=== PATIENT | male | born 1990 | race Caucasian/White ===

== ENCOUNTER → 2016-07-25 | Outpatient (CLI) | payer OTHER ==
[2016-07-25 12:24] LABS: Non-African American GFR(MDRD) >60 (>60 ml/min/1.73 sqM)
== END | disposition home or self-care (01) ==
LOC: LABMAIN 11:36
PROVIDERS: ATTEND Transplant Surgery
DX: Z00.5 Encounter for examination of potential donor of organ and tissue (principal); Z52.6 Liver donor
CPT/HCPCS: 36415; 82565

== ENCOUNTER 2018-01-12 12:58 | Emergency (ER) | payer OTHER ==
[2018-01-12 13:10] VITALS: BP 124/88; PULSE 105; RESP 18; TEMP 98.5
[2018-01-12] MEDS ORDERED: IBUPROFEN 800 MG TAB PO STA (13:18)
--- NOTE | 2018-01-12 13:33 | ED ---
General Adult HPI - General Chief complaint: Chest Pain Stated complaint: rt rib injury Time Seen by Provider: 01/12/18 13:10 Source: patient, RN notes reviewed Mode of arrival: ambulatory Limitations: no limitations - History of Present Illness Initial comments: 28-year-old male presents to the emergency department for a chief complaint of right rib pain 3 weeks. Patient states that 3 weeks ago he was tubing without a lifejacket on when he fell off onto his right side. Patient states that pain has been consistent since that time. Patient states that the pain in his ribs is causing him to decrease his workouts from 4 hours to 2 hours. Patient states that working out makes the pain worse. Patient denies shortness of breath or chest pain associated with this. Patient denies any abdominal pain. Patient has no other complaints at this time including shortness of breath, chest pain, nausea or vomiting, headache, or visual changes. - Related Data Home Medications Medication Instructions Recorded Confirmed Phentermine HCl [Adipex-P] 37.5 mg PO QAM 12/01/15 03/29/16 Ibuprofen [Motrin] 600 mg PO BID PRN 03/29/16 03/29/16 Previous Rx's Medication Instructions Recorded Omeprazole 40 mg PO DAILY #30 capsule. 03/30/16 Ibuprofen [Motrin] 800 mg PO Q6H PRN #20 tab 01/12/18 Allergies Allergy/AdvReac Type Severity Reaction Status Date / Time No Known Allergies Allergy Verified 01/12/18 13:10 Review of Systems ROS Statement: Those systems with pertinent positive or pertinent negative responses have been documented in the HPI. ROS Other: All systems not noted in ROS Statement are negative. Past Medical History Past Medical History: GERD/Reflux Additional Past Medical History / Comment(s): STATES HE HAS SEIZURE LIKE ACTIVITY (SHAKY, DIFFICULTY STANDING); LAST EPISODES WAS NOVEMBER 2015. OCCASIONAL BLOOD IN STOOL, SOMETIMES IT FEELS LIKE FOOD GETS STUCK IN HIS THROAT. DISLOCATED RIGHT SHOULDER (CHILDHOOD INJURY). History of Any Multi-Drug Resistant Organisms: None Reported Past Surgical History: Orthopedic Surgery Additional Past Surgical History / Comment(s): RIGHT KNEE ARTHROSCOPY Past Anesthesia/Blood Transfusion Reactions: No Reported Reaction Past Psychological History: No Psychological Hx Reported Smoking Status: Current every day smoker Past Alcohol Use History: Occasional Past Drug Use History: Marijuana - Past Family History Father Family Medical History: Cancer, Liver Disease Additional Family Medical History / Comment(s): HEPATITIS C, CIRRHOSIS, LIVER CANCER. General Exam Limitations: no limitations General appearance: alert, in no apparent distress (sitting on chair pleasant and interactive) Head exam: Present: atraumatic, normocephalic, normal inspection Eye exam: Present: normal appearance. Absent: scleral icterus, conjunctival injection Neck exam: Present: normal inspection, full ROM. Absent: tenderness, meningismus, lymphadenopathy Respiratory exam: Present: normal lung sounds bilaterally, other (Right anterior lower rib tenderness around rib 9). Absent: respiratory distress, wheezes, rales, rhonchi, stridor Cardiovascular Exam: Present: regular rate, normal rhythm, normal heart sounds. Absent: systolic murmur, diastolic murmur, rubs, gallop, clicks GI/Abdominal exam: Present: soft, normal bowel sounds. Absent: distended, tenderness, guarding, rebound, rigid Course Vital Signs 01/12/18 01/12/18 13:07 13:39 Temperature 98.5 F Pulse Rate 105 H Respiratory 18 18 Rate Blood Pressure 124/88 O2 Sat by Pulse 98 Oximetry Medical Decision Making - Medical Decision Making 28-year-old male presents to the emergency department for a chief complaint of right rib pain 3 weeks. Patient fell off a tube without a lifejacket about 3 weeks ago. Patient states he has had pain in his ribs since that time. Patient denies any shortness of breath or chest pain. Patient denies any abdominal pain. Vitals within normal limits but mildly tachycardic at 105. On exam patient has right lower anterior rib tenderness. No abdominal tenderness. X-ray of the right ribs shows no acute displaced rib fracture. No pneumothorax. Patient likely has a contusion of the right ribs. pt educated to rest and take a break from working out. Patient will be treated with Motrin 800. He requested 800 mg instead of 600 mg and he was educated to take this with food. He will follow up with primary care in 1-2 days. He was educated on "pillow splinting". He was educated on taking deep breaths to prevent the possibility of pneumonia. He will return to the emergency department if he has any worsening symptoms. Disposition Clinical Impression: Contusion of rib on right side Disposition: HOME SELF-CARE Condition: Good Instructions: Rib Contusion (ED) Additional Instructions: Please take Motrin as needed with food. Please rest and ice the area. You may use a pillow to press against your ribs for comfort if this helps. If you have any worsening symptoms, increased pain, or shortness of breath return to the emergency department. Otherwise, follow up with primary care in 1-2 days. Prescriptions: Ibuprofen [Motrin] 800 mg PO Q6H PRN #20 tab PRN Reason: Pain Is patient prescribed a controlled substance at d/c from ED?: No Referrals: Kirk Vernon MD [Primary Care Provider] - 1-2 days Time of Disposition: 14:04
--- NOTE | 2018-01-12 13:53 | XR ---
EXAMINATION TYPE: XR ribs RT w pa chest xray DATE OF EXAM: 01/12/2018 COMPARISON: 10/17/2010 TECHNIQUE: PA and lateral views submitted. HISTORY: Pain FINDINGS: The lungs are clear and there is no pneumothorax, pleural effusion, or focal pneumonia. X line the rib cage is intact. IMPRESSION: 1. No acute displaced rib fracture.
== END 2018-01-12 14:17 | disposition home or self-care (01) ==
LOC: EC 12:58
DX: S20.211A Contusion of right front wall of thorax, initial encounter (principal); F17.200 Nicotine dependence, unspecified, uncomplicated; Z79.899 Other long term (current) drug therapy; W19.XXXA Unspecified fall, initial encounter; Y93.16 Activity, rowing, canoeing, kayaking, rafting and tubing
CPT/HCPCS: 99283

== ENCOUNTER 2018-01-19 11:39 | Emergency (ER) | payer OTHER ==
[2018-01-19] MEDS ORDERED: KETOROLAC 30 MG/ML 1 ML VIAL IVP STA (12:32)
[2018-01-19] MEDS ORDERED: SODIUM CHLORIDE 0.9% 500 ML IV STA (12:32)
[2018-01-19] MEDS ORDERED: HYDROmorphone 1 MG/ML 1 ML SYRINGE IVP STA (12:32)
[2018-01-19] MEDS ORDERED: ONDANSETRON 4 MG/2 ML VIAL IVP STA (12:32)
--- NOTE | 2018-01-19 12:35 | ED ---
General Adult HPI - General Chief complaint: Abdominal Pain Stated complaint: Right Side Pain Time Seen by Provider: 01/19/18 12:00 Source: patient, RN notes reviewed Mode of arrival: ambulatory Limitations: no limitations - History of Present Illness Initial comments: This is a 28-year-old male who presents emergency room complaining of right- sided flank pain which radiates to his back and down into his groin. Patient states it started at 10:30 when he woke up. Patient also is very nauseated and has been vomiting. Patient states he's never sprints is 4. Patient's had no abdominal surgeries. Patient states pressing on his stomach does not seem to hurt him at all. Patient denies any difficulty breathing or shortness of breath. Patient denies any recent fever chills or cough. Patient denies any chest pain. Patient denies any headache patient denies any numbness weakness. - Related Data Home Medications Medication Instructions Recorded Confirmed Atomoxetine HCl [Strattera] 40 mg PO DAILY 01/19/18 01/19/18 Loratadine [Claritin] 10 mg PO DAILY 01/19/18 01/19/18 Previous Rx's Medication Instructions Recorded Hydrocodone/Acetaminophen [[place] 1 each PO Q4HR PRN #14 tab 01/19/18 5-325] Ketorolac [Toradol] 10 mg PO Q6HR #15 tab 01/19/18 Tamsulosin HCl [Flomax] 0.4 mg PO DAILY #7 capsule 01/19/18 Allergies Allergy/AdvReac Type Severity Reaction Status Date / Time No Known Allergies Allergy Verified 01/19/18 13:10 Review of Systems ROS Statement: Those systems with pertinent positive or pertinent negative responses have been documented in the HPI. ROS Other: All systems not noted in ROS Statement are negative. Past Medical History Past Medical History: GERD/Reflux, Seizure Disorder Additional Past Medical History / Comment(s): DISLOCATED RIGHT SHOULDER ( CHILDHOOD INJURY). History of Any Multi-Drug Resistant Organisms: None Reported Past Surgical History: Orthopedic Surgery Additional Past Surgical History / Comment(s): RIGHT KNEE ARTHROSCOPY Past Anesthesia/Blood Transfusion Reactions: No Reported Reaction Past Psychological History: No Psychological Hx Reported Smoking Status: Current every day smoker Past Alcohol Use History: Occasional Past Drug Use History: Marijuana - Past Family History Father Family Medical History: Cancer, Liver Disease Additional Family Medical History / Comment(s): HEPATITIS C, CIRRHOSIS, LIVER CANCER. General Exam - General Exam Comments Initial Comments: GENERAL: Patient is well-developed and well-nourished. Patient is nontoxic and well- hydrated and is in moderate distress. ENT: Neck is soft and supple. No significant lymphadenopathy is noted. Oropharynx is clear. Moist mucous membranes. EYES: The sclera were anicteric and conjunctiva were pink and moist. Extraocular movements were intact and pupils were equal round and reactive to light. Eyelids were unremarkable. PULMONARY: Unlabored respirations. Good breath sounds bilaterally. No audible rales rhonchi or wheezing was noted. CARDIOVASCULAR: There is a regular rate and rhythm without any murmurs gallops or rubs. ABDOMEN: Soft and nontender with normal bowel sounds. SKIN: Skin is clear with no lesions or rashes and otherwise unremarkable. NEUROLOGIC: Patient is alert and oriented x3. Cranial nerves II through XII are grossly intact. Motor and sensory are also intact. Normal speech, volume and content. Symmetrical smile. MUSCULOSKELETAL: Normal extremities with adequate strength and full range of motion. LYMPHATICS: No significant lymphadenopathy is noted PSYCHIATRIC: Normal psychiatric evaluation. Limitations: no limitations Course Vital Signs 01/19/18 01/19/18 12:00 14:06 Temperature 98.3 F 99.1 F Pulse Rate 124 H 60 Respiratory 18 14 Rate Blood Pressure 131/83 132/61 O2 Sat by Pulse 97 96 Oximetry Medical Decision Making - Medical Decision Making Patient got Toradol and Dilaudid and department along with Zofran. Patient's considerably better. Patient's CAT scan shows a kidney stone 4 mm on the right distal ureter causing some mild hydroureter and mild hydronephrosis. - Lab Data Result diagrams: 01/19/18 12:41 01/19/18 12:41 Lab Results 01/19/18 01/19/18 01/19/18 Range/Units 12:41 12:41 14:20 WBC 7.4 (3.8-10.6) k/uL RBC 5.25 (4.30-5.90) m/uL Hgb 17.7 H (13.0-17.5) gm/dL Hct 51.2 (39.0-53.0) % MCV 97.6 (80.0-100.0) fL MCH 33.7 (25.0-35.0) pg MCHC 34.6 (31.0-37.0) g/dL RDW 13.7 (11.5-15.5) % Plt Count 225 (150-450) k/uL Neutrophils % 70 % Lymphocytes % 20 % Monocytes % 5 % Eosinophils % 3 % Basophils % 0 % Neutrophils # 5.1 (1.3-7.7) k/uL Lymphocytes # 1.5 (1.0-4.8) k/uL Monocytes # 0.4 (0-1.0) k/uL Eosinophils # 0.2 (0-0.7) k/uL Basophils # 0.0 (0-0.2) k/uL Sodium 140 (137-145) mmol/L Potassium 4.5 (3.5-5.1) mmol/L Chloride 108 H (98-107) mmol/L Carbon Dioxide 22 (22-30) mmol/L Anion Gap 10 mmol/L BUN 13 (9-20) mg/dL Creatinine 1.14 (0.66-1.25) mg/dL Est GFR (CKD-EPI)AfAm >90 (>60 ml/min/1.73 sqM) Est GFR (CKD-EPI)NonAf 86 (>60 ml/min/1.73 sqM) Glucose 89 (74-99) mg/dL Calcium 9.6 (8.4-10.2) mg/dL Total Bilirubin 1.2 (0.2-1.3) mg/dL AST 23 (17-59) U/L ALT 30 (21-72) U/L Alkaline Phosphatase 53 (38-126) U/L Total Protein 6.6 (6.3-8.2) g/dL Albumin 4.6 (3.5-5.0) g/dL Amylase 73 (30-110) U/L Lipase 116 (23-300) U/L Urine Color Dark Brown Urine Appearance Cloudy (Clear) Urine RBC >182 H (0-5) /hpf Urine WBC 74 H (0-5) /hpf Urine Mucus Many H (None) /hpf Disposition Clinical Impression: Kidney stone Disposition: HOME SELF-CARE Condition: Good Instructions: Kidney Stones (ED), How to Strain Your Urine (ED) Prescriptions: Hydrocodone/Acetaminophen [[place] 5-325] 1 each PO Q4HR PRN #14 tab PRN Reason: Pain Ketorolac [Toradol] 10 mg PO Q6HR #15 tab Tamsulosin HCl [Flomax] 0.4 mg PO DAILY #7 capsule Is patient prescribed a controlled substance at d/c from ED?: Yes When asked, does pt state using other controlled substances?: No If prescribed controlled substance>3 days was MAPS reviewed?: Prescribed <3 Days If opioid is for acute pain is fill amount 7 days or less?: Yes If Rx opioid, was Start Talking consent form obtained?: Yes Referrals: Kirk Vernon MD [Primary Care Provider] - 1-2 days Time of Disposition: 14:51
[2018-01-19 13:03] LABS: Basophils % (A) 0 %; Eosinophils # (A) 0.2 k/uL (0-0.7); Eosinophils % (A) 3 %; HCT 51.2 % (39.0-53.0); HGB 17.7 gm/dL (13.0-17.5); Lymphocytes # (A) 1.5 k/uL (1.0-4.8); Lymphocytes % (A) 20 %; MCH 33.7 pg (25.0-35.0); MCHC 34.6 g/dL (31.0-37.0); MCV 97.6 fL (80.0-100.0); Mean Platelet Volume 6.8; Monocytes # (A) 0.4 k/uL (0-1.0); Monocytes % (A) 5 %; Neutrophils # (A) 5.1 k/uL (1.3-7.7); Neutrophils % (A) 70 %; Platelet Count 225 k/uL (150-450); RBC 5.25 m/uL (4.30-5.90); RDW 13.7 % (11.5-15.5); WBC 7.4 k/uL (3.8-10.6)
[2018-01-19 13:24] LABS: ALT 30 U/L (21-72); AST 23 U/L (17-59); Albumin 4.6 g/dL (3.5-5.0); Alkaline Phosphatase 53 U/L (38-126); Amylase 73 U/L (30-110); Anion Gap 10 mmol/L; Blood Urea Nitrogen 13 mg/dL (9-20); Calcium 9.6 mg/dL (8.4-10.2); Carbon Dioxide 22 mmol/L (22-30); Chloride 108 mmol/L (98-107); Glucose 89 mg/dL (74-99); Lipase 116 U/L (23-300); Potassium 4.5 mmol/L (3.5-5.1); Sodium 140 mmol/L (137-145); Total Bilirubin 1.2 mg/dL (0.2-1.3); Total Protein 6.6 g/dL (6.3-8.2)
--- NOTE | 2018-01-19 13:26 | XR ---
EXAMINATION TYPE: XR KUB DATE OF EXAM: 01/19/2018 CLINICAL DATA: 28 year-old male with abdominal pain, PHH COMPARISON: None FINDINGS: Lung bases are clear. No evidence for free intraperitoneal air. No dilated small bowel or air-fluid levels. Scattered air is seen throughout the colon extending dist ally into the rectum. Minimal scattered stool. No suspicious calcifications identified. IMPRESSION: No evidence of bowel obstruction or free intraperitoneal air.
[2018-01-19] MEDS ORDERED: HYDROmorphone 0.5 MG/0.5 ML SYRINGE IVP STA (14:06)
[2018-01-19 14:09] VITALS: TEMP 99.1
--- NOTE | 2018-01-19 14:22 | CT ---
EXAMINATION TYPE: CT abdomen pelvis wo con DATE OF EXAM: 01/19/2018 COMPARISON: None HISTORY: 28-year-old male Rt side abdominal pain CT DLP: 957.5 mGycm. Automated exposure control for dose reduction was used. TECHNIQUE: Contiguous axial scanning of the abdomen and pelvis without IV contrast. Coronal and sagit yael reconstructions performed. FINDINGS: Heart normal size without pericardial effusion. Lung bases clear without pleural effusion. The liver is borderline to mildly enlarged at 18.9 cm. Otherwise, noncontrast appearance of the liver , gallbladder, adrenal glands, and pancreas show no gross abnormal mobility. Spleen is borderline enlarged at 13.8 cm. Right kidney shows mild hydronephrosis with a small 4 mm calculus at the distal third right ureter. T here is some mildly increased density in the region of the renal pyramids that could represent concen trated urine results. No dilated small bowel, free fluid, or free air. Normal appendix. No mesenteric or retroperitoneal lymphadenopathy. Scattered mild stool. No significant stool burden. Bladder collapsed. No abnormal fluid collection in the pelvis or pelvic lymphadenopathy. Bones: There is a left L5 hemisacralization. No osseous destructive process. IMPRESSION: 1. A small 4 mm calculus at the distal third right ureter with mild obstructive uropathy. 2. Borderline hepatosplenomegaly (liver 18.9 cm and spleen 13.8 cm).
[2018-01-19 14:38] LABS: Mucus,Urine Many /hpf; RBC,Urine >182 /hpf (0-5); WBC,Urine 74 /hpf (0-5)
[2018-01-19 14:41] LABS: Appearance,Urine Cloudy (Clear); Color,Urine Dark Brown
[2018-01-19] MEDS ORDERED: ONDANSETRON 4 MG ODT STARTER PACK 2 TAB BTL PO STA (14:55)
[2018-01-19 15:25] VITALS: BP 155/91; PULSE 61; RESP 18
== END 2018-01-19 15:25 | disposition home or self-care (01) ==
LOC: EC 11:39
DX: N13.2 Hydronephrosis with renal and ureteral calculous obstruction (principal); F17.200 Nicotine dependence, unspecified, uncomplicated; Z79.899 Other long term (current) drug therapy
CPT/HCPCS: 36415; 80053; 82150; 83690; 85025; 81001; 74018; 74176; 99284; 96374; 96375 ×2; 96376 ×2; J2405; J1885; J1170 ×2; S0119

== ENCOUNTER 2018-01-26 04:14 | Emergency (ER) | payer OTHER ==
[2018-01-26 04:32] VITALS: BP 154/102; PULSE 90; RESP 18; TEMP 99.1
--- NOTE | 2018-01-26 05:16 | ED ---
General Adult HPI - General Chief complaint: Urogenital Stated complaint: KIDNEY STONE Source: patient Mode of arrival: ambulatory Limitations: no limitations - History of Present Illness Initial comments: Dictation was produced using [employer] dictation software. please excuse any grammatical, word or spelling errors. Chief Complaint: 28-year-old male withpast medical history presents with persistent pain after being diagnosed recently with 4 mm kidney stone History of Present Illness: Patient is a 28-year-old male presents for medication refill. Patient states he is without insurance. He was diagnosed with kidney stone last week and a son abdominal and pelvic CT. Stone was allegedly 4 mm. He hasn't followed up with urology secondary to lack of insurance. Patient states his pain is otherwise been fairly mild. Denies any nausea or vomiting. Denies any dysuria. The ROS documented in this emergency department record has been reviewed and confirmed by me. Those systems with pertinent positive or negative responses have been documented in the HPI. All other systems are other negative and/or noncontributory. - Related Data Home Medications Medication Instructions Recorded Confirmed Atomoxetine HCl [Strattera] 40 mg PO DAILY 01/19/18 01/19/18 Loratadine [Claritin] 10 mg PO DAILY 01/19/18 01/19/18 Previous Rx's Medication Instructions Recorded Hydrocodone/Acetaminophen [[place] 1 each PO Q4HR PRN #14 tab 01/19/18 5-325] Ketorolac [Toradol] 10 mg PO Q6HR #15 tab 01/19/18 Tamsulosin HCl [Flomax] 0.4 mg PO DAILY #7 capsule 01/19/18 HYDROcodone/APAP 5-325MG [[place] 1 tab PO Q6HR PRN 3 Days #12 tab 01/26/18 5-325] Ibuprofen [Motrin] 400 mg PO Q6HR PRN #20 tab 01/26/18 Tamsulosin HCl [Flomax] 0.4 mg PO DAILY #10 capsule 01/26/18 Allergies Allergy/AdvReac Type Severity Reaction Status Date / Time No Known Allergies Allergy Verified 01/26/18 04:32 Review of Systems ROS Statement: Those systems with pertinent positive or pertinent negative responses have been documented in the HPI. ROS Other: All systems not noted in ROS Statement are negative. Past Medical History Past Medical History: GERD/Reflux, Seizure Disorder Additional Past Medical History / Comment(s): DISLOCATED RIGHT SHOULDER ( CHILDHOOD INJURY). kidney stones, History of Any Multi-Drug Resistant Organisms: None Reported Past Surgical History: Orthopedic Surgery Additional Past Surgical History / Comment(s): RIGHT KNEE ARTHROSCOPY Past Anesthesia/Blood Transfusion Reactions: No Reported Reaction Past Psychological History: No Psychological Hx Reported Smoking Status: Current every day smoker Past Alcohol Use History: Occasional Past Drug Use History: Marijuana - Past Family History Father Family Medical History: Cancer, Liver Disease Additional Family Medical History / Comment(s): HEPATITIS C, CIRRHOSIS, LIVER CANCER. General Exam - General Exam Comments Initial Comments: PHYSICAL EXAM: General Impression: Alert and oriented x3, not in acute distress HEENT: Normocephalic atraumatic, extra-ocular movements intact, pupils equal and reactive to light bilaterally, mucous membranes moist. Cardiovascular: Heart regular rate and rhythm, S1&S2 audible, no murmurs, rubs or gallops Chest: Lungs clear to auscultation bilaterally, no rhonchi, no wheeze, no rales Abdomen: Bowel sounds present, abdomen soft, non-tender, non-distended, no organomegaly Musculoskeletal: Pulses present and equal in all extremities, no peripheral edema Motor: Power 5/5 bilaterally, no focal deficits noted Neurological: CN II-XII grossly intact, no focal motor or sensory deficits noted Skin: Intact with no visualized rashes Psych: Normal affect and mood Limitations: no limitations Course Vital Signs 01/26/18 04:29 Temperature 99.1 F Pulse Rate 90 Respiratory 18 Rate Blood Pressure 154/102 O2 Sat by Pulse 98 Oximetry Medical Decision Making - Medical Decision Making ED course: Male presents with medication refill. Patient was diagnosed with 4 mm kidney stone 7 days ago. Patient reports that he still having mild persistent symptoms. Patient given refill on his medications. Vital signs upon arrival are within acceptable limits. Patient denies any constitutional symptoms or urinary symptoms. Patient advised to follow-up with urology upon discharge. Disposition Clinical Impression: Renal colic Disposition: HOME SELF-CARE Condition: Fair Instructions: Renal Colic (ED) Prescriptions: HYDROcodone/APAP 5-325MG [[place] 5-325] 1 tab PO Q6HR PRN 3 Days #12 tab PRN Reason: Severe Pain Ibuprofen [Motrin] 400 mg PO Q6HR PRN #20 tab PRN Reason: Pain Tamsulosin HCl [Flomax] 0.4 mg PO DAILY #10 capsule Is patient prescribed a controlled substance at d/c from ED?: Yes If prescribed controlled substance>3 days was MAPS reviewed?: Prescribed <3 Days Referrals: Kirk Vernon MD [Primary Care Provider] - 1-2 days Time of Disposition: 05:16
[2018-01-26] MEDS ORDERED: IBUPROFEN 800 MG TAB PO STA (05:31)
== END 2018-01-26 05:35 | disposition home or self-care (01) ==
LOC: EC 04:14
DX: N23 Unspecified renal colic (principal); F17.200 Nicotine dependence, unspecified, uncomplicated; Z98.890 Other specified postprocedural states; Z79.899 Other long term (current) drug therapy
CPT/HCPCS: 99283

== ENCOUNTER → 2019-01-09 | Outpatient (CLI) | payer OTHER | END | disposition home or self-care (01) | LOC: CPPFTMAIN 11:09 | PROVIDERS: ATTEND Family Medicine | DX: R06.09 Other forms of dyspnea (principal) | CPT/HCPCS: 94060; 94726; 94729 ==

== ENCOUNTER 2019-04-28 12:55 | Emergency (ER) | payer OTHER ==
--- NOTE | 2019-04-28 13:41 | ED ---
Upper Extremity HPI - General Chief Complaint: Extremity Injury, Upper Stated Complaint: left shoulder injury Time Seen by Provider: 04/28/19 13:09 Source: patient, RN notes reviewed Mode of arrival: ambulatory Limitations: no limitations - History of Present Illness Initial Comments: 29-year-old male presents emergency Department chief complaint of left shoulder pain. 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 He states that he does a several times throughout his shift. He states he gets the point where his pain over his AC joint. He is [id number]. Patient states that pain is unbearable with movement. - Related Data Home Medications Medication Instructions Recorded Confirmed Atomoxetine HCl [Strattera] 40 mg PO DAILY 01/19/18 01/19/18 Loratadine [Claritin] 10 mg PO DAILY 01/19/18 01/19/18 Previous Rx's Medication Instructions Recorded Hydrocodone/Acetaminophen [[place] 1 each PO Q4HR PRN #14 tab 01/19/18 5-325] Ketorolac [Toradol] 10 mg PO Q6HR #15 tab 01/19/18 Tamsulosin HCl [Flomax] 0.4 mg PO DAILY #7 capsule 01/19/18 HYDROcodone/APAP 5-325MG [[place] 1 tab PO Q6HR PRN 3 Days #12 tab 01/26/18 5-325] Ibuprofen [Motrin] 400 mg PO Q6HR PRN #20 tab 01/26/18 Tamsulosin HCl [Flomax] 0.4 mg PO DAILY #10 capsule 01/26/18 Ibuprofen [Motrin] 600 mg PO Q8HR PRN #20 tab 04/28/19 predniSONE 50 mg PO DAILY #5 tab 04/28/19 Allergies Allergy/AdvReac Type Severity Reaction Status Date / Time No Known Allergies Allergy Verified 01/26/18 04:32 Review of Systems ROS Statement: Those systems with pertinent positive or pertinent negative responses have been documented in the HPI. ROS Other: All systems not noted in ROS Statement are negative. Past Medical History Past Medical History: GERD/Reflux Additional Past Medical History / Comment(s): DISLOCATED RIGHT SHOULDER (CHILDHOOD INJURY). kidney stones, History of Any Multi-Drug Resistant Organisms: None Reported Past Surgical History: Orthopedic Surgery Additional Past Surgical History / Comment(s): RIGHT KNEE ARTHROSCOPY Past Anesthesia/Blood Transfusion Reactions: No Reported Reaction Past Psychological History: No Psychological Hx Reported Smoking Status: Current every day smoker Past Alcohol Use History: Occasional Past Drug Use History: None Reported - Past Family History Father Family Medical History: Cancer, Liver Disease Additional Family Medical History / Comment(s): HEPATITIS C, CIRRHOSIS, LIVER CANCER. General Exam Limitations: no limitations General appearance: alert, in no apparent distress Head exam: Present: atraumatic, normocephalic, normal inspection Eye exam: Present: normal appearance, PERRL, EOMI. Absent: scleral icterus, conjunctival injection, periorbital swelling Neck exam: Present: normal inspection, full ROM. Absent: tenderness, meningismus, lymphadenopathy Respiratory exam: Present: normal lung sounds bilaterally. Absent: respiratory distress, wheezes, rales, rhonchi, stridor Cardiovascular Exam: Present: regular rate, normal rhythm, normal heart sounds. Absent: systolic murmur, diastolic murmur, rubs, gallop, clicks Extremities exam: Present: other (Left shoulder there is tenderness over the AC joint, patient does have good range of motion though reports severe pain with left shoulder flexion/ extension neurovascular intact ) Course Vital Signs 04/28/19 04/28/19 13:00 14:03 Temperature 97.8 F Pulse Rate 75 Respiratory 18 16 Rate Blood Pressure 129/75 O2 Sat by Pulse 99 Oximetry Medical Decision Making - Medical Decision Making 29-year-old male presented for left shoulder pain. This is due to tenderness, repetitive motions. Patient was started on oral steroids and anti-inflammatory pain medication. Patient will follow-up with orthopedics and return for any worsening symptoms. Disposition Clinical Impression: Left shoulder tendinitis Disposition: HOME SELF-CARE Condition: Stable Instructions (If sedation given, give patient instructions): Tendinitis (ED) Additional Instructions: Please return to the Emergency Department if symptoms worsen or any other concerns. Prescriptions: RX: Ibuprofen [Motrin] 600 mg PO Q8HR PRN #20 tab PRN Reason: Pain RX: predniSONE 50 mg PO DAILY #5 tab Is patient prescribed a controlled substance at d/c from ED?: No Referrals: Kirk Vernon MD [Primary Care Provider] - 1-2 days Blake Zacarias DO [Doctor of Osteopathic Medicine] - 1-2 days Time of Disposition: 14:29
[2019-04-28 14:04] VITALS: RESP 16
--- NOTE | 2019-04-28 14:09 | XR ---
EXAMINATION TYPE: XR shoulder complete LT , 3 VIEWS DATE OF EXAM ORDERED: 04/28/2019 HISTORY: pain AC joint, . COMPARISON: None. FINDINGS: No fracture, dislocation or other acute osseous lesion is seen. Coracoclavicular distance is normal. IMPRESSION: NO ACUTE OSSEOUS LESION.
[2019-04-28] MEDS ORDERED: ACET/COD 300 MG/30 MG STARTER PACK 6 TAB BTL PO STA (14:28)
[2019-04-28 14:50] VITALS: BP 131/73; PULSE 72; TEMP 98.3
== END 2019-04-28 14:45 | disposition home or self-care (01) ==
LOC: EC 12:55
DX: M75.92 Shoulder lesion, unspecified, left shoulder (principal); F17.200 Nicotine dependence, unspecified, uncomplicated; Z87.828 Personal history of other (healed) physical injury and trauma; X50.0XXA Overexertion from strenuous movement or load, initial encounter; Y93.89 Activity, other specified; Y92.69 Other specified industrial and construction area as the place of occurrence of the external cause
CPT/HCPCS: 99283

== ENCOUNTER 2019-05-13 09:20 | Inpatient (IN) | payer OTHER ==
--- NOTE | 2019-05-13 09:50 | XR ---
EXAMINATION TYPE: XR chest 1V portable DATE OF EXAM: 05/13/2019 Comparison: 01/12/2018 Clinical History: 29-year-old male left sided chest pain Findings: Heart size is accentuated due to low lung volumes. There is some volume loss at the left base with sl ight elevation of left diaphragm. No katerina consolidation or pleural effusion. Impression: Some volume loss at the left base with slight elevation of left hemidiaphragm. No katerina consolidation or pleural effusion seen.
--- NOTE | 2019-05-13 10:09 | ED ---
Chest Pain HPI <JoseTre - Last Filed: 05/13/19 11:41> - General Source: patient Mode of arrival: ambulatory Limitations: no limitations <Estella Leal - Last Filed: 05/13/19 14:47> - General Chief Complaint: Chest Pain Stated Complaint: difficulty breathing Time Seen by Provider: 05/13/19 09:30 - History of Present Illness Initial Comments: 29 yo male presenting for left-sided sharp chest pain and shortness of breath times one day. Patient states he recently had a knee injury within the last month. He states the last week he has had increasing pain in the posterior aspect of the knee as well as swelling. Patient states he thought it was irritation of the knee injury and has been off of work forthe past week due to increasing pain denies swelling of the calf or ankle or calf pain. Admits to increasing knee swelling.. Patient states he has orthopedic evaluation upcoming this Tuesday. States he woke up this morning however and had sharp left-sided chest pain. Patient states he feels slightly short of breath. He denies any chest pressure jaw pain arm pain. He is a smoker, denies DM, HTN. Remaining ROS (-). Upon arrival patient appears well there is no signs of acute distress. (Estella Leal) - Related Data Home Medications Medication Instructions Recorded Confirmed HYDROcodone/APAP 10-325MG [Searcy 1 tab PO TID PRN 05/13/19 05/13/19 10-325] Morphine (Unknown Dose) 1 dose PO ONCE 05/13/19 05/13/19 Previous Rx's Medication Instructions Recorded Ibuprofen [Motrin] 600 mg PO Q8HR PRN #20 tab 04/28/19 Allergies Allergy/AdvReac Type Severity Reaction Status Date / Time No Known Allergies Allergy Verified 05/13/19 11:41 Review of Systems ROS Other: All systems not noted in ROS Statement are negative. <Tre Garcia - Last Filed: 05/13/19 11:41> ROS Other: All systems not noted in ROS Statement are negative. <Estella Leal - Last Filed: 05/13/19 14:47> ROS Statement: Those systems with pertinent positive or pertinent negative responses have been documented in the HPI. EKG Findings - EKG Comments: EKG Findings:: Ventricular rate 74 bpm, OK interval 162 ms, QRS duration 92 ms, QT/QTC 346/[address] elevation or depression. Slight flattening T wave in lead III. <Estella Leal - Last Filed: 05/13/19 14:47> Past Medical History Past Medical History: GERD/Reflux Additional Past Medical History / Comment(s): DISLOCATED RIGHT SHOULDER (CHILDHOOD INJURY). kidney stones, History of Any Multi-Drug Resistant Organisms: None Reported Past Surgical History: Orthopedic Surgery Additional Past Surgical History / Comment(s): RIGHT KNEE ARTHROSCOPY Past Anesthesia/Blood Transfusion Reactions: No Reported Reaction Past Psychological History: No Psychological Hx Reported Smoking Status: Current every day smoker Past Alcohol Use History: Occasional Past Drug Use History: Marijuana - Past Family History Father Family Medical History: Cancer, Liver Disease Additional Family Medical History / Comment(s): HEPATITIS C, CIRRHOSIS, LIVER CANCER. <Estella Leal - Last Filed: 05/13/19 14:47> General Exam Limitations: no limitations <Estella Leal - Last Filed: 05/13/19 14:47> - General Exam Comments Initial Comments: General: The patient is awake and alert, in no distress, and does not appear acutely ill. Eye: +3 mm pupils are equal, round and reactive to light, extra-ocular movements are intact. No nystagmus. There is normal conjunctiva bilaterally. No signs of icterus. Ears, nose, mouth and throat: There are moist mucous membranes and no oral lesions. Neck: The neck is supple, there is no tenderness or JVD. Cardiovascular: There is a regular rate and rhythm. No murmur, rub or gallop is appreciated. Respiratory: Lungs are clear to auscultation, respirations are non-labored, breath sounds are equal. No wheezes, stridor, rales, or rhonchi. Gastrointestinal: Soft, non-distended, non-tender abdomen without masses or organomegaly noted. There is no rebound or guarding present. Musculoskeletal: Normal ROM, no tenderness. Strength 5/5. Sensation intact. Radial and DP pulses equal bilaterally 2+. Neurological: A&O x 3. CN II-XII intact grossly, There are no obvious motor or sensory deficits. Coordination appears grossly intact. Speech is normal. Skin: Skin is warm and dry and no rashes or lesions are noted. (-) Homans, no calf swelling or pain. No masses. Psychiatric: Cooperative, appropriate mood & affect, normal judgment. 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 The workup did include lab work CT angios of the chest and ultrasound he does have a DVT as well as a finding consistent with pulmonary embolism and possible lingular infarct. I did discuss the case with Dr. Vernon. Patient will be admitted with consultation by Dr. Owens. Auscultation does reveal normal heart sounds and some diminished breath sounds in the bases. Patient is a 1 pack-a-day smoker. No other overt risk factors at this time. (JoseTre) Chest Pain MDM <Estella Leal - Last Filed: 05/13/19 14:47> - MDM 29-year-old male presents emergency department today for chief complaint of pleuritic chest pain left shoulder. Recent remote injury to the left leg. Increasing knee pain and swelling 1 week. Unable to weight-bear. Concerned with this history for pulmonary embolism despite the lack of hypoxia and tachycardia. EKG was obtained revealing no really specific findings. Dimer elevated CT angiography revealed left-sided pulmonary embolism segmental with possible infarction. No evidence of right heart strain troponin negative. Patient is placed on high intensity heparin findings discussed with patient. Patient transferred to the floor in stable condition. (Estella Leal) Disposition <JoseTre - Last Filed: 05/13/19 11:41> Is patient prescribed a controlled substance at d/c from ED?: No Time of Disposition: : <Estella Leal - Last Filed: 05/13/19 14:47> Clinical Impression: SOB (shortness of breath), Left leg injury, Left leg DVT, Pulmonary embolism and infarction Disposition: ADMITTED IP TO THIS HOSP Condition: Serious
[2019-05-13 10:18] LABS: Basophils # (A) 0.2 k/uL (0-0.2); Basophils % (A) 2 %; Eosinophils # (A) 0.5 k/uL (0-0.7); Eosinophils % (A) 4 %; HCT 46.5 % (39.0-53.0); HGB 16.2 gm/dL (13.0-17.5); Lymphocytes # (A) 1.7 k/uL (1.0-4.8); Lymphocytes % (A) 13 %; MCH 33.3 pg (25.0-35.0); MCHC 34.8 g/dL (31.0-37.0); MCV 95.7 fL (80.0-100.0); Mean Platelet Volume 6.2; Monocytes # (A) 0.6 k/uL (0-1.0); Monocytes % (A) 5 %; Neutrophils % (A) 76 %; Platelet Count 193 k/uL (150-450); RBC 4.86 m/uL (4.30-5.90); RDW 12.5 % (11.5-15.5); WBC 13.2 k/uL (3.8-10.6)
[2019-05-13 10:26] LABS: ALT 40 U/L (21-72); AST 22 U/L (17-59); African American GFR (CKD) >90 (>60 ml/min/1.73 sqM); Alkaline Phosphatase 61 U/L (38-126); Anion Gap 10 mmol/L; Blood Urea Nitrogen 16 mg/dL (9-20); Calcium 9.2 mg/dL (8.4-10.2); Carbon Dioxide 24 mmol/L (22-30); Chloride 105 mmol/L (98-107); Glucose 99 mg/dL (74-99); Magnesium 2.2 mg/dL (1.6-2.3); Non-African American GFR(CKD) >90 (>60 ml/min/1.73 sqM); Potassium 4.1 mmol/L (3.5-5.1); Sodium 139 mmol/L (137-145); Total Bilirubin 0.8 mg/dL (0.2-1.3); Total Protein 6.5 g/dL (6.3-8.2)
[2019-05-13 10:30] LABS: INR 0.9 (<1.2); Partial Thromboplastin Time 25.1 sec (22.0-30.0)
[2019-05-13 10:31] LABS: D-Dimer 1.56 mg/L FEU (<0.60)
--- NOTE | 2019-05-13 11:10 | CT ---
EXAMINATION TYPE: CT chest angio for PE DATE OF EXAM: 05/13/2019 COMPARISON: None HISTORY: 29-year-old male with left lung pain. Left leg swelling. TECHNIQUE: Contiguous axial scanning of the chest performed with IV Contrast, patient injected with 1 00 mL of Isovue 370. Coronal/sagittal MIP reconstructions performed. CT DLP: 929.3 mGycm Automated exposure control for dose reduction was used. FINDINGS: The heart is normal size without pericardial effusion. No flattening of the interventricular septum r eflux of contrast into the hepatic veins. Aorta normal caliber with variant direct takeoff of the left vertebral artery directly from the aorti c arch. No thoracic lymphadenopathy by CT size criteria. Mild bilateral gynecomastia. The patient took a breath during the scan. The lower lungs are nondiagnostic. Suspicious findings wit hin a lingular segmental branch, axial image 74 and within right lower lobar branch, axial image 76. No large central pulmonary embolus. Mild diffuse bronchial wall thickening may reflect bronchitis or asthma. Focal patchy subpleural consolidation peripheral and posterior basilar left lower lobe. No pleural ef fusion. Visualized upper abdomen is motion limited. No osseous destructive process. IMPRESSION: 1. THE PATIENT TOOK A BREATH DURING THE SCAN. THE LOWER LUNGS ARE LARGELY NONDIAGNOSTIC. HOWEVER, A C OUPLE SUSPICIOUS AREAS ARE PRESENT IN THE MID LUNGS, WITHIN A LINGULAR SEGMENTAL BRANCH ON THE LEFT ( AXIAL IMAGE 74) AND WITHIN THE PROXIMAL PORTION OF THE RIGHT LOWER LOBAR BRANCH (AXIAL IMAGE 76). ACU TE PULMONARY EMBOLI ARE SUSPECTED. NO LARGE CENTRAL PULMONARY EMBOLUS OR CT FINDINGS OF RIGHT HEART S TRAIN. 2. FOCAL SUBPLEURAL CONSOLIDATION PERIPHERAL LEFT BASE COULD REPRESENT AREAS OF PULMONARY INFARCT OR DEVELOPING PNEUMONIA. FINDINGS CALLED TO WANDA PACHECO IN THE ER AT 11:05 AM.
[2019-05-13] MEDS ORDERED: MORPHINE SULFATE 4 MG/ML SYRINGE IVP STA (11:12)
[2019-05-13] MEDS ORDERED: HEPARIN SODIUM,PORCINE 5,000 UNIT/ML 1 ML VIAL IV PRN (11:12)
[2019-05-13] MEDS ORDERED: HEPARIN SODIUM,PORCINE 10,000 UNIT/ML 1 ML VIAL IV ONE (11:12)
[2019-05-13] MEDS ORDERED: NALOXONE 0.4 MG/ML 1 ML VIAL IV PRN (11:25)
--- NOTE | 2019-05-13 11:55 | US ---
EXAMINATION TYPE: US venous doppler duplex LE LT DATE OF EXAM: 05/13/2019 11:35 AM COMPARISON: NONE CLINICAL HISTORY: 29-year-old male injury knee pain swelling. Pain left leg. Diagnosed with PE today SIDE PERFORMED: left TECHNIQUE: The lower extremity deep venous system is examined utilizing real time linear array sonog ann with graded compression, doppler sonography and color-flow sonography. FINDINGS: VESSELS IMAGED: External Iliac Vein (EIV) Common Femoral Vein Deep Femoral Vein Greater Saphenous Vein * Femoral Vein Popliteal Vein Small Saphenous Vein * Proximal Calf Veins (* superficial vessels) Left Leg: +Positive for DVT left femoral vein extending into popliteal vein IMPRESSION: Exam positive for DVT within the left femoral vein extending down into the popliteal vein.
[2019-05-13] MEDS: HEPARIN SOD,PORK IN 0.45% NACL 25,000 UNIT in 0.45% NACL 1 250ML.BAG IV SCH ×2 (12:06→23:00)
[2019-05-13] MEDS: SODIUM CHLORIDE 0.9% 1,000 ML IV SCH ×2 (15:33→23:52)
[2019-05-13] MEDS: MORPHINE SULFATE 4 MG/ML SYRINGE IV PRN ×2 (18:00→22:55)
--- NOTE | 2019-05-13 21:04 | HP ---
HISTORY AND PHYSICAL CHIEF COMPLAINT: A 29-year-old white male admitted with pulmonary embolism and DVT of the left leg with some chest pain, difficulty breathing. Appears to be resting comfortably in bed with oxygen saturation 99% on room air. He denies any chest pressure, jaw pain, arm pain. He is a smoker. He has no history of any medications at home. He has no history of hypertension, diabetes mellitus. He is obese. He is supposed to see a bone doctor for a knee injury, which he has had in the past few weeks at work. He came in due to worsening some atypical chest pain and leg pain and found to have a DVT and PE. ALLERGIES: Negative. REVIEW OF SYMPTOMS: Otherwise, 14-point review of systems negative. MEDICATIONS: Medications he is on: Heparin drip at this time. Pain medicine for pain. EKG shows no ischemia, sinus rhythm. PAST MEDICAL HISTORY: Obesity, kidney stones, GERD, orthopedic surgery, right knee arthroscopy. He does do some marijuana. FAMILY HISTORY: Father with cancer and had liver disease, hepatitis C, cirrhosis, liver cancer. PHYSICAL EXAM: Vital signs are reviewed. He is awake, alert, and oriented. BMI is over 30. Pupils equal, round, reactive. NECK: Supple. No mass. No thyromegaly. Lungs: Clear. CARDIAC: Regular rate and rhythm. GI soft, nontender. Distended due to obesity. Psych: Fair mood and affect. Neurologic: Cranial nerves intact. Blood pressure is 114-136 over 70s to 80s. Respiratory 16-18, pulse 60s to 80s, temp 98.4. ASSESSMENT AND PLAN: 1. Left-sided pulmonary embolism on CTA, possible infarction. Troponins are negative. He is on high intensity heparin. We will get orthopedic consult for his leg injury. 2. He has a left leg deep vein thrombosis. Heparin and oral anticoagulation prior to going home. 3. Please see further orders. MMODL / IJN: [id number] /
[2019-05-14] MEDS: MORPHINE SULFATE 4 MG/ML SYRINGE IV PRN ×4 (04:58→19:58)
[2019-05-14 06:35] LABS: Basophils # (A) 0.1 k/uL (0-0.2); Basophils % (A) 1 %; Eosinophils # (A) 0.5 k/uL (0-0.7); Eosinophils % (A) 5 %; HCT 44.9 % (39.0-53.0); HGB 15.4 gm/dL (13.0-17.5); Lymphocytes # (A) 2.1 k/uL (1.0-4.8); Lymphocytes % (A) 19 %; MCH 33.6 pg (25.0-35.0); MCHC 34.4 g/dL (31.0-37.0); MCV 97.6 fL (80.0-100.0); Mean Platelet Volume 6.2; Monocytes # (A) 0.6 k/uL (0-1.0); Monocytes % (A) 5 %; Neutrophils # (A) 7.5 k/uL (1.3-7.7); Neutrophils % (A) 69 %; Platelet Count 160 k/uL (150-450); RDW 12.6 % (11.5-15.5); WBC 10.9 k/uL (3.8-10.6)
[2019-05-14] MEDS ORDERED: INFLUENZA VACCINE (6 MOS+) 60 MCG/0.5 ML SYRINGE IM ONE (08:00)
[2019-05-14] MEDS: HEPARIN SOD,PORK IN 0.45% NACL 25,000 UNIT in 0.45% NACL 1 250ML.BAG IV SCH ×2 (12:30→22:12)
--- NOTE | 2019-05-14 14:11 | P.CNOR ---
History of Present Illness - [facility] Consult date: 05/14/19 Consult reason: joint pain History of present illness: Patient is a 29-year-old pleasant male seen at bedside this morning consultation for left knee pain. He presented to the emergency department yesterday 2018 with left-sided chest pain but also stated he had left knee pain. He states he developed left knee pain about 3-4 weeks ago which was worsened from chronic knee pain he's had for 2 years. He initially stated that he didn't have an injury or trauma to the knee however later states he slipped on some ice a few weeks ago. Pain is at the posterior knee. He has no anterior or medial or lateral knee pain. Studies through the emergency department showed he had a DVT as well as left-sided pulmonary embolism which he has been admitted for and is being treated by internal medicine. He continues to have the left knee pain and lower leg pain. He denies numbness or tingling that is constant. He has no radicular symptoms. He has no other current complaints. Review of Systems All systems: negative Constitutional: Denies chills, Denies fever Eyes: denies blurred vision, denies pain Ears, nose, mouth and throat: Denies headache, Denies sore throat Cardiovascular: Denies chest pain, Denies shortness of breath Respiratory: Denies cough Gastrointestinal: Denies abdominal pain, Denies diarrhea, Denies nausea, Denies vomiting Musculoskeletal: Denies myalgias Integumentary: Denies pruritus, Denies rash Neurological: Denies numbness, Denies weakness Psychiatric: Denies anxiety, Denies depression Endocrine: Denies fatigue, Denies weight change Past Medical History Past Medical History: GERD/Reflux Additional Past Medical History / Comment(s): DISLOCATED RIGHT SHOULDER (CHILDHOOD INJURY). kidney stones, History of Any Multi-Drug Resistant Organisms: None Reported Past Surgical History: Orthopedic Surgery Additional Past Surgical History / Comment(s): RIGHT KNEE ARTHROSCOPY Past Anesthesia/Blood Transfusion Reactions: No Reported Reaction Past Psychological History: No Psychological Hx Reported Smoking Status: Current every day smoker Past Alcohol Use History: Occasional Past Drug Use History: Marijuana - Past Family History Father Family Medical History: Cancer, Liver Disease Additional Family Medical History / Comment(s): HEPATITIS C, CIRRHOSIS, LIVER CANCER. Medications and Allergies Home Medications Medication Instructions Recorded Confirmed Type Ibuprofen [Motrin] 600 mg PO Q8HR PRN #20 tab 04/28/19 05/13/19 Rx Apixaban [Eliquis Starter Pack 0 mg PO DIRECTED 30 Days #1 pack 05/14/19 Rx (for VTE)] Allergies Allergy/AdvReac Type Severity Reaction Status Date / Time No Known Allergies Allergy Verified 05/13/19 11:41 Physical Examination Inspection of the left knee and lower leg shows no significant effusion or erythema. There is mild peripheral edema. There is tenderness at the hamstring insertion. There is no medial or lateral joint line tenderness. There is no MCL tenderness. Negative Lockman's. Negative Jose Antonio's. The knee is ligamentously stable. He extends fully to 0 and flexes to 120. patella has normal tracking. The knee is not hot to touch. There is pain at the hamstring insertion with resisted flexion. Calf is soft. Neurovascular status intact w ith motor and sensation throughout the left lower extremity. There is 2 plus dorsalis pedis pulse. less than 2 second capillary refill present. Results x-rays of left knee are negative for fracture, dislocation or lesion. - Labs Labs: Abnormal Lab Results - Last 24 Hours (Table) 05/13/19 05/14/19 05/14/19 Range/Units 18:02 01:58 06:08 WBC 10.9 H (3.8-10.6) k/uL APTT 112.4 H* 55.5 H (22.0-30.0) sec H & H 05/13/19 05/14/19 Range/Units 10:07 06:08 Hgb 16.2 15.4 (13.0-17.5) gm/dL Hct 46.5 44.9 (39.0-53.0) % Coagulation 05/13/19 Range/Units 10:07 INR 0.9 (<1.2) Result Diagrams: 05/14/19 06:08 05/13/19 10:07 Assessment and Plan (1) Left leg injury Narrative/Plan: He likely has a hamstring strain however due him having complaints along the lower leg, his age, no other current medical problems, andhaving a DVT/PE, we will obtain a total body bone scan to investigate for possible lesions that could be contributing. We'll continue following and make further recommendations as appropriate.Thank you Current Visit: Yes Status: Acute Priority: Medium Code(s): S89.92XA - UNSPECIFIED INJURY OF LEFT LOWER LEG, INITIAL ENCOUNTER SNOMED Code(s): 71881129196358499 Time with Patient: Less than 30
--- NOTE | 2019-05-14 14:36 | XR ---
Left knee HISTORY: Trauma and pain 3 views the left knee Bone mineralization, joint spaces and alignment are maintained. No evident joint effusion. IMPRESSION: No acute abnormality. MRI may be of benefit.
[2019-05-14] MEDS: SODIUM CHLORIDE 0.9% 1,000 ML IV SCH (15:22)
--- NOTE | 2019-05-14 15:31 | P.PN ---
Subjective Progress Note Date: 05/14/19 Synthroid 1-year-old gentleman admitted with pulmonary embolism, DVT of the left leg and multiple other medical issues. Maintained on heparin drip. Denies any chest pain, palpitations, jaw pain, arm pain. Denies any lightheadedness, dizziness or focal deficits. Evaluated by orthopedic surgery, hamstring strain suspected, total body bone scan ordered. Pulmonary consult in place, recommendations pending. Complains of left rib cage pain with deep inspiration.VSS. X-ray of left knee reporting no joint effusion, no acute abnormality. Objective - Vital Signs Vital signs: Vital Signs Temp 97.6 F 05/14/19 08:00 Pulse 85 05/14/19 12:00 Resp 16 05/14/19 12:00 BP 132/82 05/14/19 11:25 Pulse Ox 95 05/14/19 11:25 Intake & Output 05/13/19 05/14/19 05/14/19 18:59 06:59 18:59 Intake Total 386.732 53.682 721.569 Balance 386.732 53.682 721.569 Weight 119.295 kg 123.2 kg Intake: Intake, IV Titration 146.732 53.682 241.569 Amount Heparin Sod,Pork in 0.45% 146.732 53.682 241.569 NaCl 25,000 unit In 0.45 % NaCl 1 250ml.bag @ 18 UNITS/KG/HR 21.473 mls/hr IV .[id number] [facility] Rx#: [id number] Oral 240 480 Other: Voiding Method Toilet Urinal # Voids 1 1 2 - Exam PHYSICAL EXAM: VITAL SIGNS: As above GENERAL: Sitting up in bed, no acute distress HEENT: Conjunctivae normal. eyes normal. Oral mucosa moist NECK: No JVD. No thyroid enlargement. No LNs CARDIOVASCULAR: S1, S2 regular.. No murmur RESPIRATION: Breath sounds diminished in the bases. No rhonchi or crackles. No bronchial breathing. ABDOMEN: Soft, nontender . No guarding. no masses palpable. No ascites, No hepatosplenomegaly.Bowel sounds heard. LEGS: Left leg tenderness, increased warmth, mild peripheral edema, positive DP PSYCHIATRY: Alert and oriented X3, mood and affect normal. NERVOUS SYSTEM: Cranial N 2-12 grossly normal. Moves all 4 limbs. Diffuse weakness No focal deficits. Strength and sensation grossly intact.. Skin: no lesions, no rash - Labs CBC & Chem 7: 05/14/19 06:08 05/13/19 10:07 Labs: Abnormal Lab Results - Last 24 Hours (Table) 05/13/19 05/14/19 05/14/19 Range/Units 18:02 01:58 06:08 WBC 10.9 H (3.8-10.6) k/uL APTT 112.4 H* 55.5 H (22.0-30.0) sec Assessment and Plan Assessment: -Left-sided PE, possible pulmonary infarction -Left DVT -Obesity, BMI 35.8 -Gastroesophageal reflux disease -Nicotine dependence -Marijuana use Plan: Continue on current medication regime ,monitoring and symptomatic treatment. Maintain heparin drip. Orthopedic recommendations noted and appreciated. Pulmonary consult in place, recommendations pending. The impression and plan of care has been dictated as directed. : I performed a history and examination of this patient, discussed the same with the dictator. I agree with the dictator's note ,documented as a scribe. Any additional findings or plans will be noted.
--- NOTE | 2019-05-14 15:50 | P.CNPUL ---
History of Present Illness Consult date: 05/14/19 Reason for consult: pulmonary embolism, DVT History of present illness: A 29-year-old male patient who presented to the hospital because of left knee pain. This been going on for the past 3 weeks. He also developed acute pleuritic left-sided chest pain on a daily admission along with his left knee pain. As far as the left knee pain, this been going on for about 3-4 weeks without any reported trauma or fall or injuries. No previous history of DVT. No previous history of pulmonary embolism. No recent surgeries. Has undergone previous meniscal surgery in the right knee and this was several years back. No family history of sudden . He thinks his father had issues with DVT, noted the patient's father was quite sick and he undergone a liver chest mentation is not sure whether the clotting occurred before or after the liver chest pain.. Currently is on IV heparin as the patient was found to have a left sided DVT extending from the femoral to the popliteal area. CAT scan of the brain in the form of CT angiogram also showed pulmonary emboli bilaterally, subsegmental. No signs of any right ventricular strain pattern. No hemodynamic instability. The patient is currently on room air oxygen with a pulse of 75%. Normal blood pressure. No tachycardia. Pleurisy is subsided. No hemoptysis. Hemoglobin is 15.4. White cell count of 10.9. He is on IV heparin with therapeutic PTT Review of Systems Constitutional: Denies chills, Denies fever Eyes: denies as per HPI, denies blurred vision, denies bulging eye, denies decreased vision, denies diplopia, denies discharge, denies dry eye, denies irritation, denies itching, denies pain, denies photophobia, denies loss of peripheral vision, denies loss of vision, denies tunnel vision/blind spots Ears: deny: decreased hearing, ear discharge, earache, tinnitus Ears, nose, mouth and throat: Reports as per HPI Breasts: absent: as per HPI, gynecomastia Cardiovascular: Denies chest pain, Denies shortness of breath Respiratory: Reports pleurisy Gastrointestinal: Denies abdominal pain, Denies diarrhea, Denies nausea, Denies vomiting Genitourinary: Reports as per HPI Musculoskeletal: Reports as per HPI (Left knee pain) Musculoskeletal: left: hip swelling, knee pain, bilateral: knee stiffness Integumentary: Reports as per HPI Neurological: Reports as per HPI Psychiatric: Reports as per HPI Endocrine: Reports as per HPI Hematologic/Lymphatic: Reports as per HPI Allergic/Immunologic: Reports as per HPI Past Medical History Past Medical History: GERD/Reflux Additional Past Medical History / Comment(s): DISLOCATED RIGHT SHOULDER (CHILDHOOD INJURY). kidney stones, History of Any Multi-Drug Resistant Organisms: None Reported Past Surgical History: Orthopedic Surgery Additional Past Surgical History / Comment(s): RIGHT KNEE ARTHROSCOPY Past Anesthesia/Blood Transfusion Reactions: No Reported Reaction Past Psychological History: No Psychological Hx Reported Smoking Status: Current every day smoker Past Alcohol Use History: Occasional Past Drug Use History: Marijuana - Past Family History Father Family Medical History: Cancer, Liver Disease Additional Family Medical History / Comment(s): HEPATITIS C, CIRRHOSIS, LIVER CANCER. Medications and Allergies Home Medications Medication Instructions Recorded Confirmed Type Ibuprofen [Motrin] 600 mg PO Q8HR PRN #20 tab 04/28/19 05/13/19 Rx Apixaban [Eliquis Starter Pack 0 mg PO DIRECTED 30 Days #1 pack 05/14/19 Rx (for VTE)] Allergies Allergy/AdvReac Type Severity Reaction Status Date / Time No Known Allergies Allergy Verified 05/13/19 11:41 Physical Exam Vitals: Vital Signs Temp Pulse Resp BP Pulse Ox 05/14/19 12:00 85 16 05/14/19 11:25 85 16 132/82 95 05/14/19 08:00 97.6 F 74 18 128/73 99 05/14/19 04:00 97.9 F 72 16 116/68 99 05/13/19 23:39 67 18 05/13/19 23:37 98.0 F 67 18 122/70 99 05/13/19 21:51 95 05/13/19 20:00 71 18 05/13/19 19:56 98.0 F 71 18 125/76 99 05/13/19 16:00 97.3 F L 83 20 138/82 97 Intake and Output 05/14/19 05/14/19 05/14/19 06:59 14:59 22:59 Intake Total 53.682 721.569 Balance 53.682 721.569 Intake: Intake, IV Titration 53.682 241.569 Amount Heparin Sod,Pork in 0.45% 53.682 241.569 NaCl 25,000 unit In 0.45 % NaCl 1 250ml.bag @ 18 UNITS/KG/HR 21.473 mls/hr IV .[id number] [facility] Rx#: [id number] Oral 480 Other: Voiding Method Toilet Urinal # Voids 1 2 Weight 123.2 kg The patient appeared well nourished and normally developed. Vital signs as documented. Head exam is unremarkable. No scleral icterus or corneal arcus noted. Neck is without jugular venous distension, thyromegaly, or carotid bruits. Carotid upstrokes are brisk bilaterally. Lungs are clear to auscultation and percussion. Cardiac exam reveals the PMI to be normally sized and situated. Rhythm is regular. First and second heart sounds normal. No murmurs, rubs or gal lops. Abdominal exam reveals normal bowel sounds, no masses, no organomegaly and no aortic enlargement. Extremities are nonedematous and both femoral and pedal pulses are normal.Examination of the skin revealed no evidence of significant rashes, suspicious appearing nevi or other concerning lesions. Neurologically awake. He is alert. No focal neurological deficit. Results - Laboratory Findings CBC and BMP: 05/14/19 06:08 05/13/19 10:07 PT/INR, D-dimer PT 10.0 sec (9.0-12.0) 05/13/19 10:07 INR 0.9 (<1.2) 05/13/19 10:07 D-Dimer 1.56 mg/L FEU (<0.60) H 05/13/19 10:07 Abnormal lab findings: Abnormal Labs 05/13/19 05/13/19 05/13/19 10:07 10:07 18:02 WBC 13.2 H Neutrophils # 10.0 H APTT 112.4 H* D-Dimer 1.56 H 05/14/19 05/14/19 01:58 06:08 WBC 10.9 H Neutrophils # APTT 55.5 H D-Dimer - Diagnostic Findings CT scan - chest: image reviewed U/S of Legs: image reviewed Assessment and Plan Plan: 1 left lower extremity DVT involving the femoral and popliteal vein, unprovoked 2 acute pulmonary embolism must subsegmental, with secondary pleuritic chest pain and shortness of breath, unprovoked 3 borderline obesity with a BMI 35.8. 4 acid reflux 5 history of smoking Plan Continued IV heparin. Obtain approval for long-term anticoagulation with Eliquis as the patient is a unprovoked DVT and pulmonary embolism. Orthopedic evaluation regarding the left knee pain. A myopathy and the pain in the left lower extremity is most likely related to his underlying DVT. Early mobility. Overall poor status is stable. This is a low burden pulmonary embolism. No hemodynamic instability. We'll continue to follow.
[2019-05-14] MEDS: PANTOPRAZOLE 40 MG/10 ML VIAL IVP SCH (17:02)
[2019-05-14] MEDS ORDERED: KETOROLAC 30 MG/ML 1 ML VIAL IVP PRN (22:45)
[2019-05-14 23:04] VITALS: TEMP 98.2
[2019-05-15] MEDS: SODIUM CHLORIDE 0.9% 1,000 ML IV SCH (05:31)
[2019-05-15 06:10] LABS: Basophils # (A) 0.1 k/uL (0-0.2); Basophils % (A) 1 %; Eosinophils # (A) 0.3 k/uL (0-0.7); Eosinophils % (A) 4 %; HCT 44.1 % (39.0-53.0); HGB 14.5 gm/dL (13.0-17.5); Lymphocytes # (A) 1.6 k/uL (1.0-4.8); Lymphocytes % (A) 18 %; MCH 32.2 pg (25.0-35.0); MCHC 32.8 g/dL (31.0-37.0); Mean Platelet Volume 6.8; Monocytes # (A) 0.5 k/uL (0-1.0); Monocytes % (A) 5 %; Neutrophils # (A) 6.5 k/uL (1.3-7.7); Neutrophils % (A) 71 %; Platelet Count 159 k/uL (150-450); RDW 12.5 % (11.5-15.5); WBC 9.2 k/uL (3.8-10.6)
[2019-05-15 06:18] LABS: African American GFR (CKD) >90 (>60 ml/min/1.73 sqM); Anion Gap 5 mmol/L; Blood Urea Nitrogen 17 mg/dL (9-20); Calcium 8.6 mg/dL (8.4-10.2); Carbon Dioxide 28 mmol/L (22-30); Chloride 106 mmol/L (98-107); Glucose 86 mg/dL (74-99); Non-African American GFR(CKD) 84 (>60 ml/min/1.73 sqM); Potassium 4.4 mmol/L (3.5-5.1); Sodium 139 mmol/L (137-145)
[2019-05-15 08:23] VITALS: RESP 18
[2019-05-15] MEDS: PANTOPRAZOLE 40 MG/10 ML VIAL IVP SCH (08:26)
--- NOTE | 2019-05-15 08:29 | ECHOF ---
Referral Reason:acute pulmonary embolism MEASUREMENTS -------- HEIGHT: 185.4 cm WEIGHT: 122.9 kg BP: 132/82 RVIDd: 3.2 cm (< 3.3) IVSd: 1.1 cm (0.6 - 1.1) LVIDd: 5.1 cm (3.9 - 5.3) LVPWd: 1.0 cm (0.6 - 1.1) IVSs: 1.6 cm LVIDs: 3.1 cm LVPWs: 1.7 cm LA Diam: 3.2 cm (2.7 - 3.8) LAESV Index (A-L): 22.89 ml/m Ao Diam: 3.7 cm (2.0 - 3.7) AV Cusp: 2.5 cm (1.5 - 2.6) MV EXCURSION: 18.872 mm (> 18.000) MV EF SLOPE: 186 mm/s (70 - 150) EPSS: 0.6 cm MV E Victor Manuel: 0.68 m/s MV DecT: 253 ms MV A Victor Manuel: 0.42 m/s MV E/A Ratio: 1.60 TAPSE: 18.13 mm FINDINGS -------- Sinus rhythm. This was a technically adequate study. The left ventricular size is normal. There is borderline concentric left ventricular hypertrophy. Overall left ventricular systolic function is normal with, an EF between 60 - 65 %. The right ventricle is normal in size. Normal LA size by volume 22+/-6 ml/m2. The right atrium is normal in size. Interatrial and interventricular septum intact. The aortic valve is trileaflet and appears structurally normal. The mitral valve is normal. The tricuspid valve appears structurally normal. There is no pulmonic regurgitation present. The aortic root size is normal. Normal inferior vena cava with normal inspiratory collapse consistent with estimated right atrial pre ssure of 5 mmHg. There is no pericardial effusion. CONCLUSIONS -------- 1. Sinus rhythm. 2. This was a technically adequate study. 3. The left ventricular size is normal. 4. There is borderline concentric left ventricular hypertrophy. 5. Overall left ventricular systolic function is normal with, an EF between 60 - 65 %. 6. The right ventricle is normal in size. 7. Normal LA size by volume 22+/-6 ml/m2. 8. The right atrium is normal in size. 9. Interatrial and interventricular septum intact. 10. The aortic valve is trileaflet and appears structurally normal. 11. The mitral valve is normal. 12. The tricuspid valve appears structurally normal. 13. There is no pulmonic regurgitation present. 14. The aortic root size is normal. 15. Normal inferior vena cava with normal inspiratory collapse consistent with estimated right atrial pressure of 5 mmHg. 16. There is no pericardial effusion. VICE PRESIDENT [employer] AFFAIRS: Martina Vásquez RDCS
[2019-05-15] MEDS ORDERED: APIXABAN 5 MG TAB PO SCH (09:00)
--- NOTE | 2019-05-15 10:34 | P.PN ---
Subjective Progress Note Date: 05/15/19 Principal diagnosis: Left knee pain Patient is seen at bedside this morning. We are following for complaint of left knee pain in area of hamstring insertion. he states he's had chronic left knee pain and aching however it worsened approximately 2 weeks ago. He states he slipped on some ice about 3 weeks ago but denies any other trauma or injury. He was admitted through the emergency department after testing showed a DVT and pulmonary embolism. He continues to have tenderness behind the left knee as well as along the anterior left lower leg. He denies any radicular symptoms including numbness or tingling. He has no other complaints. x-rays of the left knee were relatively benign with no evidence of fractures, lesions or dislocation Objective - Vital Signs Vital signs: Vital Signs Temp 98.2 F 05/14/19 23:03 Pulse 82 05/15/19 08:00 Resp 18 05/15/19 08:00 BP 115/68 05/15/19 08:00 Pulse Ox 98 05/15/19 08:00 Intake & Output 05/14/19 05/15/19 05/15/19 18:59 06:59 18:59 Intake Total 961.569 600 240 Balance 961.569 600 240 Weight 122.4 kg Intake: Intake, IV Titration 241.569 600 Amount Heparin Sod,Pork in 0.45% 241.569 NaCl 25,000 unit In 0.45 % NaCl 1 250ml.bag @ 18 UNITS/KG/HR 21.473 mls/hr IV .[id number] [facility] Rx#: [id number] Sodium Chloride 0.9% 1, 600 000 ml @ 75 mls/hr IV . [id number] [facility] Rx#:[id number] Oral 720 240 Other: Voiding Method Toilet Urinal # Voids 2 1 - Exam Inspection of the left knee is benign. There is no deformity, effusion, erythema or ecchymoses. He is tender at the hamstring insertion behind the left knee. There is mild swelling/edema of the distal left lower leg. Motor and sensation is intact throughout the left lower extremity. He has full extension of the left knee and flexes 120. There is mild discomfort with full flexion. He also has pain with resisted flexion of the left hamstring. He has painless range of motion of the ankle, foot and toes. 2 plus DP pulses present and less than 2 second capillary refill is present. Calf is soft and nontender. - Constitutional General appearance: Present: no acute distress - Labs CBC & Chem 7: 05/15/19 05:35 05/15/19 05:35 Labs: Abnormal Lab Results - Last 24 Hours (Table) 05/15/19 Range/Units 05:35 APTT 53.5 H (22.0-30.0) sec - Imaging and Cardiology x-rays of the left knee as well as the report were reviewed. There is no evidence of fracture dislocation or lesion. Assessment and Plan (1) Left leg injury Narrative/Plan: x-rays were benign. He is pending and nuclear medicine total-body bone scan this afternoon. He likely has a left hamstring strain that were required time and rest. However due to him having complaints along the lower leg, his age, no other current medical problems, and having a DVT/PE, we will obtain a total body bone scan to investigate for possible lesions that could be contributing. We'll continue following and make further recommendations as appropriate. We may also consider obtain an MRI of the left knee should the bone scan be nondiagnostic. Thank you Current Visit: Yes Status: Acute Priority: Medium Code(s): S89.92XA - UNSPECIFIED INJURY OF LEFT LOWER LEG, INITIAL ENCOUNTER SNOMED Code(s): 26870190963589969 Time with Patient: Less than 30
--- NOTE | 2019-05-15 12:40 | P.PN ---
Subjective Progress Note Date: 05/15/19 A 29-year-old male patient who presented to the hospital because of left knee p ain. This been going on for the past 3 weeks. He also developed acute pleuritic left-sided chest pain on a daily admission along with his left knee pain. As far as the left knee pain, this been going on for about 3-4 weeks without any reported trauma or fall or injuries. No previous history of DVT. No previous history of pulmonary embolism. No recent surgeries. Has undergone previous meniscal surgery in the right knee and this was several years back. No family history of sudden . He thinks his father had issues with DVT, noted the patient's father was quite sick and he undergone a liver chest mentation is not sure whether the clotting occurred before or after the liver chest pain.. Currently is on IV heparin as the patient was found to have a left sided DVT extending from the femoral to the popliteal area. CAT scan of the brain in the form of CT angiogram also showed pulmonary emboli bilaterally, subsegmental. No signs of any right ventricular strain pattern. No hemodynamic instability. The patient is currently on room air oxygen with a pulse of 75%. Normal blood pressure. No tachycardia. Pleurisy is subsided. No hemoptysis. Hemoglobin is 15.4. White cell count of 10.9. He is on IV heparin with therapeutic PTT On today's evaluation of 1120 16,019 the patient is being seen for a follow-up. He was having some nonspecific pain across his chest overnight and currently is free of any chest pain. He is on oral Eliquis and IV heparin was discontinued. The knee pain is well breath currently. The x-ray was benign. The patient is holding a bone scan today per orthopedic recommendation. There is a possibility the patient also has a left hamstring strain. No nausea. No vomiting. No other complaints otherwise for now. He remains hemodynamically stable. Objective - Vital Signs Vital signs: Vital Signs Temp 98.2 F 05/14/19 23:03 Pulse 82 05/15/19 08:00 Resp 18 05/15/19 08:00 BP 115/68 05/15/19 08:00 Pulse Ox 98 05/15/19 08:00 Intake & Output 05/14/19 05/15/19 05/15/19 18:59 06:59 18:59 Intake Total 961.569 600 240 Balance 961.569 600 240 Weight 122.4 kg Intake: Intake, IV Titration 241.569 600 Amount Heparin Sod,Pork in 0.45% 241.569 NaCl 25,000 unit In 0.45 % NaCl 1 250ml.bag @ 18 UNITS/KG/HR 21.473 mls/hr IV .[id number] [facility] Rx#: [id number] Sodium Chloride 0.9% 1, 600 000 ml @ 75 mls/hr IV . [id number] [facility] Rx#:[id number] Oral 720 240 Other: Voiding Method Toilet Urinal # Voids 2 1 - Exam The patient appeared well nourished and normally developed. Vital signs as documented. Head exam is unremarkable. No scleral icterus or corneal arcus noted. Neck is without jugular venous distension, thyromegaly, or carotid bruits. Carotid upstrokes are brisk bilaterally. Lungs are clear to auscultation and percussion. Cardiac exam reveals the PMI to be normally sized and situated. Rhythm is regular. First and second heart sounds normal. No murmurs, rubs or gallops. Abdominal exam reveals normal bowel sounds, no masses, no organomegaly and no aortic enlargement. Extremities are nonedematous and both femoral and pedal pulses are normal.Examination of the skin revealed no evidence of signif icant rashes, suspicious appearing nevi or other concerning lesions. Neurologically awake. He is alert. No focal neurological deficit. - Labs CBC & Chem 7: 05/15/19 05:35 05/15/19 05:35 Labs: Abnormal Lab Results - Last 24 Hours (Table) 05/15/19 Range/Units 05:35 APTT 53.5 H (22.0-30.0) sec Assessment and Plan Plan: 1 left lower extremity DVT involving the femoral and popliteal vein, unprovoked 2 acute pulmonary embolism must subsegmental, with secondary pleuritic chest pain and shortness of breath, unprovoked 3 borderline obesity with a BMI 35.8. 4 acid reflux 5 history of smoking Plan The knee was within normal limits since was benign. Proceed with a bone scan. Suspect hamstring tear versus sprain versus pain related to the DVT. He is on oral Eliquis. We'll continue to follow.
[2019-05-15 12:53] VITALS: BP 122/68; PULSE 76
[2019-05-15] MEDS: MORPHINE SULFATE 4 MG/ML SYRINGE IV PRN (13:24)
--- NOTE | 2019-05-15 13:39 | NM ---
EXAMINATION TYPE: NM bone scan whole body DATE OF EXAM: 05/15/2019 COMPARISON: NONE HISTORY: Knee pain, leg pain Delayed whole-body scanning was performed following the injection of 22.3 mCi Tc 99m MDP. Images acq uired 5 hours post injection. FINDINGS: Soft tissue uptake is normal. Mild uptake in the feet, ankles, knees, shoulders, sternomanubrial join ts is likely degenerative. No areas of increased or decreased uptake to suggest metastatic disease. IMPRESSION: No evident metastatic disease. Degenerative changes are suspected
[2019-05-15] MEDS ORDERED: ACETAMINOPHEN TAB 325 MG TAB PO PRN (13:49)
--- NOTE | 2019-05-15 15:47 | P.PN ---
Subjective Progress Note Date: 05/15/19 Synthroid 1-year-old gentleman admitted with pulmonary embolism, DVT of the left leg and multiple other medical issues. Maintained on heparin drip. Denies any chest pain, palpitations, jaw pain, arm pain. Denies any lightheadedness, dizziness or focal deficits. Evaluated by orthopedic surgery, hamstring strain suspected, total body bone scan ordered. Pulmonary consult in place, recommendations pending. Complains of left rib cage pain with deep inspiration.VSS. X-ray of left knee reporting no joint effusion, no acute abnormality. 05/15/2019 anticoagulated on Eliquis. Pain improving. Bone scan pending. Vital signs stable. Consuming 100% of diet with no nausea vomiting or diarrhea. Denies chest pain, palpitations or shortness of breath. Objective - Vital Signs Vital signs: Vital Signs Temp 98.2 F 05/14/19 23:03 Pulse 76 05/15/19 12:00 Resp 18 05/15/19 12:00 BP 122/68 05/15/19 12:00 Pulse Ox 99 05/15/19 12:00 Intake & Output 05/14/19 05/15/19 05/15/19 18:59 06:59 18:59 Intake Total 961.569 600 360 Balance 961.569 600 360 Weight 122.4 kg Intake: Intake, IV Titration 241.569 600 Amount Heparin Sod,Pork in 0.45% 241.569 NaCl 25,000 unit In 0.45 % NaCl 1 250ml.bag @ 18 UNITS/KG/HR 21.473 mls/hr IV .[id number] [facility] Rx#: [id number] Sodium Chloride 0.9% 1, 600 000 ml @ 75 mls/hr IV . [id number] [facility] Rx#:[id number] Oral 720 360 Other: Voiding Method Toilet Urinal # Voids 2 1 1 - Exam PHYSICAL EXAM: VITAL SIGNS: As above GENERAL: Sitting up in bed, no acute distress HEENT: Conjunctivae normal. eyes normal. Oral mucosa moist NECK: No JVD. No thyroid enlargement. No LNs CARDIOVASCULAR: S1, S2 regular.No murmur RESPIRATION: Breath sounds diminished in the bases. No rhonchi or crackles. ABDOMEN: Soft, nontender . No guarding. no masses palpable. Bowel sounds heard. LEGS: Left leg tenderness, increased warmth, mild peripheral edema, positive DP PSYCHIATRY: Alert and oriented X3, mood and affect normal. NERVOUS SYSTEM: Cranial N 2-12 grossly normal. Moves all 4 limbs. Diffuse weakness No focal deficits. Skin: no lesions, no rash - Labs CBC & Chem 7: 05/15/19 05:35 05/15/19 05:35 Labs: Abnormal Lab Results - Last 24 Hours (Table) 05/15/19 Range/Units 05:35 APTT 53.5 H (22.0-30.0) sec Assessment and Plan Assessment: -Left-sided PE, possible pulmonary infarction -Left DVT -Obesity, BMI 35.8 -Gastroesophageal reflux disease -Nicotine dependence -Marijuana use Plan: Continue on current medication regime ,monitoring and symptomatic treatment. Discharge planning in progress for today pending Body /bone scan, clearance from orthopedics and pulmonary. The impression and plan of care has been dictated as directed. : I performed a history and examination of this patient, discussed the same with the dictator. I agree with the dictator's note ,documented as a scribe. Any additional findings or plans will be noted.
--- NOTE | 2019-05-15 15:57 | P.DS ---
Providers Date of admission: 05/15/19 10:33 Expected date of discharge: 05/15/19 Attending physician: Kirk Vernon Consults: 05/13/19 13:04 Consult Physician Routine Consulting Provider: Tre Roblero Consult Reason/Comments: Blood clot in lungs. Do you want consulting provider notified?: Yes 05/13/19 13:06 Consult Physician Routine Consulting Provider: Raheem Zacarias Consult Reason/Comments: Left leg injury/ new blood clot. Do you want consulting provider notified?: Yes, Notify in am 05/14/19 22:45 Consult Physician Routine Consulting Provider: Fer Miranda Consult Reason/Comments: dvt cause Do you want consulting provider notified?: Yes Primary care physician: Kirk Vernon [facility] Course: Final Diagnoses: -Left-sided PE, possible pulmonary infarction, pulmonary following. EF 60-65%. -Left DVT -Possible left hamstring strain -Obesity, BMI 35.8 -Gastroesophageal reflux disease -Nicotine dependence -Marijuana use " Hospital course: This is a 29-year-old gentleman admitted with pulmonary embolism, DVT of the left leg and multiple other medical issues. Maintained on heparin drip. Denies any chest pain, palpitations, jaw pain, arm pain. Denies any lightheadedness, dizziness or focal deficits. Evaluated by orthopedic surgery, hamstring strain suspected, total body bone scan ordered. Pulmonary consult in place, recommendations pending. Complains of left rib cage pain with deep inspiration.VSS. X-ray of left knee reporting no joint effusion, no acute abnormality. 05/15/2019 anticoagulated on Eliquis. Pain improving. Bone scan pending. Vital signs stable. Consuming 100% of diet with no nausea vomiting or diarrhea. Denies chest pain, palpitations or shortness of breath. Significant clinical improvement. Patient will be discharged home today pending bone scan, orthopedic, hematology and pulmonary clearance, in a stable condition with guarded prognosis. EXAM: GENERAL: alert and oriented X 3, no acute distress. CARDIOVASCULAR: S1, S2 regular.No murmur RESPIRATION: Breath sounds diminished in the bases. No rhonchi or crackles. ABDOMEN: Soft, nontender . No guarding. no masses palpable. Bowel sounds heard. LEGS: Improving Left leg tenderness,mild peripheral edema, positive DP NERVOUS SYSTEM: No focal deficits. The impression and plan of care has been dictated as directed. : I performed a history and examination of this patient, discussed the same with the dictator. I agree with the dictator's note ,documented as a scribe. Any additional findings or plans will be noted. Patient Condition at Discharge: Stable Plan - Discharge Summary Discharge Rx Participant: Yes New Discharge Prescriptions: New Apixaban [Eliquis Starter Pack (for VTE)] 0 mg PO DIRECTED 30 Days #1 pack Pantoprazole Sodium [Protonix] 40 mg PO DAILY #30 tablet. Acetaminophen Tab [Tylenol] 650 mg PO Q6HR PRN tab PRN Reason: Fever And/ Or Pain Discontinued Ibuprofen [Motrin] 600 mg PO Q8HR PRN #20 tab PRN Reason: Pain Discharge Medication List Apixaban [Eliquis Starter Pack (for VTE)] 0 mg PO DIRECTED 30 Days #1 pack 05/14/19 [Rx] Acetaminophen Tab [Tylenol] 650 mg PO Q6HR PRN tab 05/15/19 [Rx] Pantoprazole Sodium [Protonix] 40 mg PO DAILY #30 tablet. 05/15/19 [Rx] Follow up Appointment(s)/Referral(s): Genna Arreola NPC [Nurse Practitioner] - 05/31/19 3:30 pm () Kirk Vernon MD [Primary Care Provider] - 05/21/19 11:15 am (Tuesday) Live Horne MD [STAFF PHYSICIAN] - 06/18/19 1:30 pm (for blood work only Dr. Horne June 26 at 2:30) Blake Zacarias DO [Doctor of Osteopathic Medicine] - 05/25/19 2:20 pm (Tuesday) Ambulatory/Diagnostic Orders: Complete Blood Count w/diff [LAB.AMB] Time Frame: 3 Days, Location: None Selected Patient Instructions/Handouts: Pulmonary Embolism (DC), Safe Use of Anticoagulants (DC) Activity/Diet/Wound Care/Special Instructions: Pending body scan, Orthopedics. and pulmonary clearance Work restriction until follow up with Dr. Barrios Take Tylenol for pain. If pain is severe call Dr. Barrios's office Discharge/Stand Alone Forms: Work/Release Restrictions Form
--- NOTE | 2019-05-15 18:55 | P.CONS ---
History of Present Illness - Reason for Consult Consult date: 05/15/19 unprovoked DVT Requesting physician: Kirk Vernon - Chief Complaint pain behind left knee - History of Present Illness Mr. Noyola is a very pleasant 29-year-old male who we have been asked to see for unprovoked DVT/PE. He presents to the hospital with complaints of left knee pain, started about 3-4 weeks ago, he favored the leg, walked on his heel, the pain became severe 2 days ago with the new symptom of sharp, left- sided chest pain. On admission patient was worked up and found to have a left lower extremity fem/popliteal DVT as well as bilateral PE. He was placed on a heparin drip with improvement in his symptoms. 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 No B symptoms, new or unusual pains reported Past Medical History Past Medical History: GERD/Reflux Additional Past Medical History / Comment(s): DISLOCATED RIGHT SHOULDER (CHILDHOOD INJURY). kidney stones, History of Any Multi-Drug Resistant Organisms: None Reported Past Surgical History: Orthopedic Surgery Additional Past Surgical History / Comment(s): RIGHT KNEE ARTHROSCOPY Past Anesthesia/Blood Transfusion Reactions: No Reported Reaction Past Psychological History: No Psychological Hx Reported Smoking Status: Current every day smoker Past Alcohol Use History: Occasional Past Drug Use History: Marijuana - Past Family History Father Family Medical History: Cancer, Liver Disease Additional Family Medical History / Comment(s): HEPATITIS C, CIRRHOSIS, LIVER CANCER. Medications and Allergies Home Medications Medication Instructions Recorded Confirmed Type Apixaban [Eliquis Starter Pack 0 mg PO DIRECTED 30 Days #1 pack 05/14/19 Rx (for VTE)] Acetaminophen Tab [Tylenol] 650 mg PO Q6HR PRN tab 05/15/19 Rx Pantoprazole Sodium [Protonix] 40 mg PO DAILY #30 tablet. 05/15/19 Rx Allergies Allergy/AdvReac Type Severity Reaction Status Date / Time No Known Allergies Allergy Verified 05/13/19 11:41 Physical Exam Vitals: Vital Signs Temp Pulse Resp BP Pulse Ox 05/15/19 12:00 76 18 122/68 99 05/15/19 08:00 82 18 115/68 98 05/14/19 23:04 84 19 05/14/19 23:03 98.2 F 84 19 142/87 99 05/14/19 20:00 98.0 F 83 18 123/77 98 Intake and Output 05/15/19 05/15/19 05/15/19 06:59 14:59 22:59 Intake Total 360 Balance 360 Intake: Oral 360 Other: Voiding Method Toilet Urinal # Voids 1 1 Weight 122.4 kg - Constitutional General appearance: cooperative, no acute distress, obese - EENT Eyes: anicteric sclerae, EOMI ENT: hearing grossly normal, normal oropharynx - Neck Neck: no lymphadenopathy - Respiratory Respiratory: bilateral: CTA - Cardiovascular Rhythm: regular Heart sounds: normal: S1, S2 Abnormal Heart Sounds: no systolic murmur, no diastolic murmur, no rub, no S3 Gallop, no S4 Gallop, no click, no other leg Peripheral Edema: right: None, left: 1+ - Gastrointestinal General gastrointestinal: no absent bowel sounds, no decreased bowel sounds, no distended, no hepatomegaly, no hyperactive bowel sounds, normal bowel sounds, no organomegaly, no rigid, no scaphoid, soft, no splenomegaly, no tenderness, no umbilical hernia, no ventral hernia - Integumentary Integumentary: normal - Neurologic Neurologic: CNII-XII intact - Musculoskeletal Musculoskeletal: strength equal bilaterally - Psychiatric Psychiatric: A&O x's 3, appropriate affect, intact judgment & insight Results CBC & Chem 7: 05/15/19 05:35 05/15/19 05:35 Labs: Abnormal Lab Results - Last 24 Hours (Table) 05/15/19 Range/Units 05:35 APTT 53.5 H (22.0-30.0) sec Comments: Nuclear medicine bone scan report reviewed CT scan - chest: report reviewed Venous US: report reviewed Assessment and Plan (1) Left leg DVT Status: Acute Priority: High Code(s): I82.402 - ACUTE EMBOLISM AND THOMBOS UNSP DEEP VEINS OF L LOW EXTREM SNOMED Code(s): 897650403 (2) Pulmonary embolism and infarction Status: Acute Priority: High Code(s): I26.99 - OTHER PULMONARY EMBOLISM WITHOUT ACUTE COR PULMONALE SNOMED Code(s): 1308153405256 Plan: This does appear to be unprovoked DVT and pulmonary embolism. Recommendation is for hypercoagulable workup. Will set him up for an appointment for lab draw with a follow-up appointment with one of the hematologists afterwards. He agreed and verbalized understanding. Office will contact him. As for duration of anticoagulation, lifelong is most likely, as it is extensive and unprovoked.
[2019-05-16] MEDS ORDERED: PANTOPRAZOLE 40 MG TABLET PO SCH (07:30)
== END 2019-05-15 16:32 | disposition home or self-care (01) | DRG 176 ==
LOC: EC 09:20 → 3SCARD 11:41 → OBSVTOIN 05-15 10:33
PROVIDERS: ADMIT Family Medicine; ATTEND Family Medicine
DX: I26.99 Other pulmonary embolism without acute cor pulmonale (principal); I82.412 Acute embolism and thrombosis of left femoral vein; I82.432 Acute embolism and thrombosis of left popliteal vein; E66.9 Obesity, unspecified; F17.200 Nicotine dependence, unspecified, uncomplicated; K21.9 Gastro-esophageal reflux disease without esophagitis; S76.312A Strain of muscle, fascia and tendon of the posterior muscle group at thigh level, left thigh, initial encounter; G89.29 Other chronic pain; Z68.35 Body mass index [BMI] 35.0-35.9, adult; Z87.442 Personal history of urinary calculi; Z80.0 Family history of malignant neoplasm of digestive organs
CPT/HCPCS: 36415; 71045; 71275; 78306; 80048; 80053; 83735; 84484; 85025; 85379; 85610; 85730; 93005; 93306; 94760; 96365; 96375; 96376; 99285

== ENCOUNTER 2019-05-23 23:16 | Emergency (ER) | payer OTHER ==
[2019-05-23 23:26] VITALS: TEMP 97.8
--- NOTE | 2019-05-24 00:14 | ED ---
General Adult HPI - General Chief complaint: Recheck/Abnormal Lab/Rx Stated complaint: Vomiting Blood, HX Blood Clots Time Seen by Provider: 05/23/19 23:29 Source: patient Mode of arrival: ambulatory Limitations: no limitations - History of Present Illness Initial comments: This patient is a 29-year-old man who presents to be evaluated for an episode of hemoptysis. The patient states that between 1 and 2 hours ago, he was getting ready for work. He had taken a shower and then he coughed and there was a small clot. Patient was concerned because she is taking eliquis after having been diagnosed with left leg DVT and resulting pulmonary embolism. states that this had happened once before leaving the hospital shortly after starting the eliquis. Denies any other coming symptoms. No fever or chills. No dyspnea. No chest pain. No lightheadedness, palpitations or syncope. Onset/Timin -: hour(s) - Related Data Previous Rx's Medication Instructions Recorded Apixaban [Eliquis Starter Pack 0 mg PO DIRECTED 30 Days #1 pack 05/14/19 (for VTE)] Acetaminophen Tab [Tylenol] 650 mg PO Q6HR PRN tab 05/15/19 Pantoprazole Sodium [Protonix] 40 mg PO DAILY #30 tablet. 05/15/19 Azithromycin [Zithromax Z-pack] 250 mg PO DIRECTED #6 tab 05/24/19 Allergies Allergy/AdvReac Type Severity Reaction Status Date / Time No Known Allergies Allergy Verified 05/23/19 23:26 Review of Systems ROS Statement: Those systems with pertinent positive or pertinent negative responses have been documented in the HPI. ROS Other: All systems not noted in ROS Statement are negative. Constitutional: Denies: fever, chills Respiratory: Reports: hemoptysis. Denies: cough, dyspnea Cardiovascular: Denies: chest pain, palpitations, edema, syncope Gastrointestinal: Denies: abdominal pain, vomiting, diarrhea, melena, hematochezia Musculoskeletal: Denies: back pain Skin: Denies: rash Neurological: Denies: headache, weakness Hematological/Lymphatic: Reports: other (on eliquis). Denies: easy bleeding Past Medical History Past Medical History: Deep Vein Thrombosis (DVT), GERD/Reflux, Pulmonary Embolus (PE) Additional Past Medical History / Comment(s): DISLOCATED RIGHT SHOULDER (CHILDHOOD INJURY). kidney stones, History of Any Multi-Drug Resistant Organisms: None Reported Past Surgical History: Orthopedic Surgery Additional Past Surgical History / Comment(s): RIGHT KNEE ARTHROSCOPY Past Anesthesia/Blood Transfusion Reactions: No Reported Reaction Past Psychological History: No Psychological Hx Reported Smoking Status: Current every day smoker Past Alcohol Use History: Occasional Past Drug Use History: Marijuana - Past Family History Father Family Medical History: Cancer, Liver Disease Additional Family Medical History / Comment(s): HEPATITIS C, CIRRHOSIS, LIVER CANCER. General Exam Limitations: no limitations General appearance: alert, in no apparent distress Head exam: Present: atraumatic, normocephalic Eye exam: Present: normal appearance. Absent: scleral icterus, conjunctival injection ENT exam: Present: normal oropharynx Respiratory exam: Present: normal lung sounds bilaterally. Absent: respiratory distress, wheezes, rales, rhonchi, stridor, chest wall tenderness, accessory muscle use Cardiovascular Exam: Present: regular rate, normal rhythm, normal heart sounds. Absent: systolic murmur, diastolic murmur, rubs, gallop GI/Abdominal exam: Present: soft. Absent: distended, tenderness Extremities exam: Present: normal inspection, normal capillary refill. Absent: pedal edema, calf tenderness Back exam: Present: normal inspection. Absent: CVA tenderness (R), CVA tenderness (L) Skin exam: Present: warm, dry, intact, normal color. Absent: rash Course Vital Signs 05/23/19 23:22 Temperature 97.8 F Pulse Rate 95 Respiratory 20 Rate Blood Pressure 130/84 O2 Sat by Pulse 97 Oximetry Medical Decision Making - Lab Data Result diagrams: 05/24/19 00:53 05/24/19 00:53 Lab Results 05/24/19 05/24/19 Range/Units 00:53 00:53 WBC 12.0 H (3.8-10.6) k/uL RBC 4.62 (4.30-5.90) m/uL Hgb 15.3 (13.0-17.5) gm/dL Hct 44.2 (39.0-53.0) % MCV 95.7 (80.0-100.0) fL MCH 33.1 (25.0-35.0) pg MCHC 34.6 (31.0-37.0) g/dL RDW 12.4 (11.5-15.5) % Plt Count 239 (150-450) k/uL Neutrophils % 70 % Lymphocytes % 20 % Monocytes % 5 % Eosinophils % 4 % Basophils % 1 % Neutrophils # 8.4 H (1.3-7.7) k/uL Lymphocytes # 2.4 (1.0-4.8) k/uL Monocytes # 0.5 (0-1.0) k/uL Eosinophils # 0.5 (0-0.7) k/uL Basophils # 0.1 (0-0.2) k/uL Sodium 138 (137-145) mmol/L Potassium 4.3 (3.5-5.1) mmol/L Chloride 104 (98-107) mmol/L Carbon Dioxide 26 (22-30) mmol/L Anion Gap 8 mmol/L BUN 19 (9-20) mg/dL Creatinine 1.14 (0.66-1.25) mg/dL Est GFR (CKD-EPI)AfAm >90 (>60 ml/min/1.73 sqM) Est GFR (CKD-EPI)NonAf 86 (>60 ml/min/1.73 sqM) Glucose 84 (74-99) mg/dL Calcium 9.8 (8.4-10.2) mg/dL Disposition Clinical Impression: Hemoptysis Disposition: HOME SELF-CARE Condition: Good Instructions (If sedation given, give patient instructions): Hemoptysis (ED) Prescriptions: Azithromycin [Zithromax Z-pack] 250 mg PO DIRECTED #6 tab Is patient prescribed a controlled substance at d/c from ED?: No Referrals: Kirk Vernon MD [Primary Care Provider] - 1-2 days
--- NOTE | 2019-05-24 00:35 | XR ---
EXAMINATION TYPE: XR chest 2V DATE OF EXAM: 05/24/2019 COMPARISON: 05/13/2019 HISTORY: Coughing up blood TECHNIQUE: Frontal and lateral views of the chest are obtained. FINDINGS: Heart and mediastinum are normal. There is a small infiltrate at the lateral left lung bas e. The other lung thomas are clear. Pulmonary vascularity is normal. There are no hilar masses. IMPRESSION: Tiny infiltrate lateral left lung base is probably new compared to old exam. Normal hear t.
[2019-05-24 01:00] LABS: Basophils # (A) 0.1 k/uL (0-0.2); Basophils % (A) 1 %; Eosinophils # (A) 0.5 k/uL (0-0.7); Eosinophils % (A) 4 %; HCT 44.2 % (39.0-53.0); HGB 15.3 gm/dL (13.0-17.5); Lymphocytes # (A) 2.4 k/uL (1.0-4.8); Lymphocytes % (A) 20 %; MCH 33.1 pg (25.0-35.0); MCHC 34.6 g/dL (31.0-37.0); MCV 95.7 fL (80.0-100.0); Mean Platelet Volume 6.3; Monocytes # (A) 0.5 k/uL (0-1.0); Monocytes % (A) 5 %; Neutrophils # (A) 8.4 k/uL (1.3-7.7); Neutrophils % (A) 70 %; Platelet Count 239 k/uL (150-450); RBC 4.62 m/uL (4.30-5.90); RDW 12.4 % (11.5-15.5)
[2019-05-24 01:08] LABS: African American GFR (CKD) >90 (>60 ml/min/1.73 sqM); Anion Gap 8 mmol/L; Blood Urea Nitrogen 19 mg/dL (9-20); Calcium 9.8 mg/dL (8.4-10.2); Carbon Dioxide 26 mmol/L (22-30); Chloride 104 mmol/L (98-107); Glucose 84 mg/dL (74-99); Non-African American GFR(CKD) 86 (>60 ml/min/1.73 sqM); Potassium 4.3 mmol/L (3.5-5.1); Sodium 138 mmol/L (137-145)
[2019-05-24] MEDS ORDERED: AZITHROMYCIN 500 MG TAB PO STA (01:39)
[2019-05-24 03:10] VITALS: BP 122/78; PULSE 72; RESP 19
== END 2019-05-24 03:02 | disposition home or self-care (01) ==
LOC: EC 23:16
DX: R04.2 Hemoptysis (principal); F17.200 Nicotine dependence, unspecified, uncomplicated; Z79.01 Long term (current) use of anticoagulants; Z86.711 Personal history of pulmonary embolism; Z86.718 Personal history of other venous thrombosis and embolism
CPT/HCPCS: 36415; 80048; 85025; 71046; 99283; 96365; J0696

== ENCOUNTER 2019-06-17 22:01 | Emergency (ER) | payer OTHER ==
[2019-06-17 22:06] VITALS: BP 110/69; PULSE 76; RESP 20; TEMP 97.3
--- NOTE | 2019-06-17 22:30 | ED ---
GI Bleed HPI - General Chief complaint: GI Bleed Stated complaint: Rectal Bleed Time Seen by Provider: 06/17/19 22:09 Source: patient, RN notes reviewed, old records reviewed Mode of arrival: ambulatory Limitations: no limitations - History of Present Illness Initial comments: This is a 29-year-old male here for evaluation patient is blood on in his stool or blood bowel movement. Denies dizziness or weakness no feelings of syncope or near syncope. Medical history is unremarkable regarding diarrhea or abdominal illness no abdominal pain. Patient again is on [place] for recent DVT and PE. Did have a brief bright red stool MD complaint: blood on toilet paper, blood streaked stool -: hour(s) (3) Quality: painless Consistency: now resolved Improves with: none Worsens with: none Associated Symptoms: denies other symptoms Treatments Prior to Arrival: none - Related Data Previous Rx's Medication Instructions Recorded Apixaban [Eliquis Starter Pack 0 mg PO DIRECTED 30 Days #1 pack 05/14/19 (for VTE)] Acetaminophen Tab [Tylenol] 650 mg PO Q6HR PRN tab 05/15/19 Pantoprazole Sodium [Protonix] 40 mg PO DAILY #30 tablet. 05/15/19 Azithromycin [Zithromax Z-pack] 250 mg PO DIRECTED #6 tab 05/24/19 Allergies Allergy/AdvReac Type Severity Reaction Status Date / Time No Known Allergies Allergy Verified 06/17/19 22:05 Review of Systems ROS Statement: Those systems with pertinent positive or pertinent negative responses have been documented in the HPI. ROS Other: All systems not noted in ROS Statement are negative. Past Medical History Past Medical History: Deep Vein Thrombosis (DVT), GERD/Reflux, Pulmonary Embolus (PE) Additional Past Medical History / Comment(s): DISLOCATED RIGHT SHOULDER (CHILDHOOD INJURY). kidney stones, History of Any Multi-Drug Resistant Organisms: None Reported Past Surgical History: Orthopedic Surgery Additional Past Surgical History / Comment(s): RIGHT KNEE ARTHROSCOPY Past Anesthesia/Blood Transfusion Reactions: No Reported Reaction Past Psychological History: No Psychological Hx Reported Smoking Status: Current every day smoker Past Alcohol Use History: Occasional Past Drug Use History: Marijuana - Past Family History Father Family Medical History: Cancer, Liver Disease Additional Family Medical History / Comment(s): HEPATITIS C, CIRRHOSIS, LIVER CANCER. General Exam Limitations: no limitations General appearance: alert, in no apparent distress Head exam: Present: atraumatic, normocephalic, normal inspection Eye exam: Present: normal appearance, PERRL, EOMI. Absent: scleral icterus, conjunctival injection, periorbital swelling ENT exam: Present: normal exam, mucous membranes moist Neck exam: Present: normal inspection. Absent: tenderness, meningismus, lymphadenopathy Respiratory exam: Present: normal lung sounds bilaterally. Absent: respiratory distress, wheezes, rales, rhonchi, stridor Cardiovascular Exam: Present: regular rate, normal rhythm, normal heart sounds. Absent: systolic murmur, diastolic murmur, rubs, gallop, clicks GI/Abdominal exam: Present: soft, normal bowel sounds. Absent: distended, tenderness, guarding, rebound, rigid Rectal exam: Present: normal inspection Extremities exam: Present: normal inspection, full ROM, normal capillary refill. Absent: tenderness, pedal edema, joint swelling, calf tenderness Back exam: Present: normal inspection Neurological exam: Present: alert, oriented X3, CN II-XII intact Psychiatric exam: Present: normal affect, normal mood Skin exam: Present: warm, dry, intact, normal color. Absent: rash Course Vital Signs 06/17/19 22:02 Temperature 97.3 F L Pulse Rate 76 Respiratory 20 Rate Blood Pressure 110/69 O2 Sat by Pulse 99 Oximetry - Reevaluation(s) Reevaluation #1: Record is reviewed Spoke with patient at length regarding warning signs of sore throat for patient does not want admission or observation patient encouraged to return if symptoms worsen point bowel movements persist or if he feels lightheaded dizzy or weak Medical Decision Making - Medical Decision Making 29 male here for evaluation of 1 bright red bloody will follow-up. Episode of b right red blood in his stool. No recurrent episodes. Patient is asymptomatic and will be discharged home and return if symptoms worsen or persist Disposition Clinical Impression: Lower gastrointestinal hemorrhage, Gastrointestinal hemorrhage Disposition: HOME SELF-CARE Condition: Good Instructions (If sedation given, give patient instructions): Gastrointestinal Bleeding (ED) Is patient prescribed a controlled substance at d/c from ED?: No Referrals: Kirk Vernon MD [Primary Care Provider] - 1-2 days
== END 2019-06-17 22:46 | disposition home or self-care (01) ==
LOC: EC 22:01
DX: K92.2 Gastrointestinal hemorrhage, unspecified (principal); F17.200 Nicotine dependence, unspecified, uncomplicated; Z79.01 Long term (current) use of anticoagulants; Z86.711 Personal history of pulmonary embolism; Z86.718 Personal history of other venous thrombosis and embolism; Z87.19 Personal history of other diseases of the digestive system; Z80.0 Family history of malignant neoplasm of digestive organs
CPT/HCPCS: 99285

== ENCOUNTER 2019-06-19 22:47 | Emergency (ER) | payer OTHER ==
[2019-06-19 22:53] VITALS: BP 124/79; PULSE 86; RESP 18; TEMP 98.3
[2019-06-19] MEDS ORDERED: ACETAMINOPHEN TAB 325 MG TAB PO STA (23:14)
--- NOTE | 2019-06-20 00:04 | CT ---
EXAMINATION TYPE: CT brain wo con DATE OF EXAM: 06/19/2019 COMPARISON: HISTORY: head injury after hiting right side of head on door. CT DLP: 1078.4 mGycm Automated exposure control for dose reduction was used. Exam performed with no contrast. Ventricles and sulci appear normal. There is no mass effect nor midline shift. There is no sign of in tracranial hemorrhage. There is no evidence of cerebral edema. Calvarium is intact. IMPRESSION: Normal head CT scan.
--- NOTE | 2019-06-20 00:06 | ED ---
Head Injury HPI - General Chief complaint: Head Injury Stated complaint: head injury Time Seen by Provider: 06/19/19 22:55 Source: patient Mode of arrival: ambulatory Limitations: no limitations - History of Present Illness Initial comments: This patient is a 29-year-old man presenting to be evaluated for head injury. The patient states that he was in the process of getting into his car was struck by the door to the right temporal area. There was no loss of consciousness. He is having moderate right-sided headache. He denies any neurologic symptoms. The patient is concerned because he does take blood thinner due to having history of DVT/PE. The patient complains of tenderness and pain at the area as well as swelling. Denies other injury. MD Complaint: head injury Onset/Timin -: minutes(s) Mechanism of Injury: other Location: temporal Loss of Consciousness: no Previous Trauma to this Area: No Place: home Radiation: none Severity: moderate Quality: aching Consistency: constant Other Injuries: none Associated Symptoms: denies other symptoms - Related Data Previous Rx's Medication Instructions Recorded Apixaban [Eliquis Starter Pack 0 mg PO DIRECTED 30 Days #1 pack 05/14/19 (for VTE)] Acetaminophen Tab [Tylenol] 650 mg PO Q6HR PRN tab 05/15/19 Pantoprazole Sodium [Protonix] 40 mg PO DAILY #30 tablet. 05/15/19 Azithromycin [Zithromax Z-pack] 250 mg PO DIRECTED #6 tab 05/24/19 Allergies/Adverse reactions: Allergies Allergy/AdvReac Type Severity Reaction Status Date / Time No Known Allergies Allergy Verified 06/17/19 22:05 Review of Systems ROS Statement: Those systems with pertinent positive or pertinent negative responses have been documented in the HPI. ROS Other: All systems not noted in ROS Statement are negative. Constitutional: Denies: fever, weakness Eyes: Denies: eye pain, vision change ENT: Denies: ear pain, hearing loss, epistaxis Respiratory: Denies: cough Cardiovascular: Denies: chest pain Gastrointestinal: Denies: abdominal pain Musculoskeletal: Denies: back pain Skin: Denies: rash Neurological: Reports: headache. Denies: weakness, numbness, paresthesias Hematological/Lymphatic: Reports: as per HPI Past Medical History Past Medical History: Deep Vein Thrombosis (DVT), GERD/Reflux, Pulmonary Embolus (PE) Additional Past Medical History / Comment(s): Blood clots,DISLOCATED RIGHT SHOULDER (CHILDHOOD INJURY). kidney stones, History of Any Multi-Drug Resistant Organisms: None Reported Past Surgical History: Orthopedic Surgery Additional Past Surgical History / Comment(s): RIGHT KNEE ARTHROSCOPY Past Anesthesia/Blood Transfusion Reactions: No Reported Reaction Past Psychological History: No Psychological Hx Reported Smoking Status: Current every day smoker Past Alcohol Use History: Occasional Past Drug Use History: Marijuana - Past Family History Father Family Medical History: Cancer, Liver Disease Additional Family Medical History / Comment(s): HEPATITIS C, CIRRHOSIS, LIVER CANCER. General Exam Limitations: no limitations General appearance: alert, in no apparent distress Head exam: Present: normocephalic, other (The patient has a hematoma (2*3 cm) to the right temporal area and a small overlying abrasion. There is bony tenderness on palpation but no deformity.) Eye exam: Present: normal appearance, PERRL, EOMI. Absent: scleral icterus, conjunctival injection, nystagmus ENT exam: Present: normal oropharynx, TM's normal bilaterally Neck exam: Present: full ROM. Absent: tenderness Respiratory exam: Present: normal lung sounds bilaterally. Absent: respiratory distress, wheezes, rales, rhonchi, stridor Cardiovascular Exam: Present: regular rate, normal rhythm, normal heart sounds. Absent: systolic murmur, diastolic murmur, rubs, gallop Neurological exam: Present: alert, oriented X3, CN II-XII intact. Absent: motor sensory deficit Skin exam: Present: warm, dry, intact, normal color, abrasion Course Vital Signs 06/19/19 22:49 Temperature 98.3 F Pulse Rate 86 Respiratory 18 Rate Blood Pressure 124/79 O2 Sat by Pulse 98 Oximetry Medical Decision Making - Medical Decision Making Patient is 29-year-old man presenting to be evaluated following blunt trauma to the right parietal area. He does have some moderate bony tenderness on palpation and has overlying them at home up. Given this will check CT to rule out fracture. Patient did have CT which is negative for fracture or brain injury. Discussed appropriate further care and follow-up. Disposition Clinical Impression: Head injury Disposition: HOME SELF-CARE Condition: Good Instructions (If sedation given, give patient instructions): Head Injury (ED) Is patient prescribed a controlled substance at d/c from ED?: No Referrals: Kirk Vernon MD [Primary Care Provider] - 1-2 days
== END 2019-06-20 00:26 | disposition home or self-care (01) ==
LOC: EC 22:47
DX: S00.83XA Contusion of other part of head, initial encounter (principal); F17.200 Nicotine dependence, unspecified, uncomplicated; W22.8XXA Striking against or struck by other objects, initial encounter; Y93.89 Activity, other specified; Y92.89 Other specified places as the place of occurrence of the external cause
CPT/HCPCS: 70450; 99284

== ENCOUNTER 2019-06-23 23:19 | Emergency (ER) | payer OTHER ==
[2019-06-24 00:41] LABS: Basophils # (A) 0.1 k/uL (0-0.2); Basophils % (A) 1 %; Eosinophils # (A) 0.3 k/uL (0-0.7); Eosinophils % (A) 3 %; HCT 43.9 % (39.0-53.0); HGB 15.5 gm/dL (13.0-17.5); Lymphocytes % (A) 20 %; MCH 33.8 pg (25.0-35.0); MCHC 35.3 g/dL (31.0-37.0); MCV 95.7 fL (80.0-100.0); Mean Platelet Volume 8.3; Monocytes # (A) 0.5 k/uL (0-1.0); Monocytes % (A) 5 %; Neutrophils % (A) 71 %; Platelet Count 182 k/uL (150-450); RBC 4.58 m/uL (4.30-5.90); RDW 13.3 % (11.5-15.5); WBC 9.8 k/uL (3.8-10.6)
[2019-06-24 00:51] LABS: Albumin 4.3 g/dL (3.5-5.0); Calcium 9.3 mg/dL (8.4-10.2); Potassium 4.1 mmol/L (3.5-5.1); Total Bilirubin 0.7 mg/dL (0.2-1.3); Total Protein 6.8 g/dL (6.3-8.2)
[2019-06-24 00:54] LABS: Partial Thromboplastin Time 27.4 sec (22.0-30.0); Prothrombin Time 10.4 sec (9.0-12.0)
[2019-06-24] MEDS ORDERED: SODIUM CHLORIDE 0.9% 1,000 ML IV STA (01:14)
--- NOTE | 2019-06-24 01:39 | CT ---
EXAMINATION TYPE: CT chest angio for PE DATE OF EXAM: 06/24/2019 COMPARISON: 05/13/2019 HISTORY: Patient presents with chest pain. CT DLP: 945.6 mGycm Automated exposure control for dose reduction was used. CONTRAST: Performed with IV Contrast, patient injected with 70mL mL of Isovue 370. There are 3-D post processed images. The lungs are clear of consolidation. There is no evidence of a pulmonary mass. There is no pleural e ffusion. Heart appears normal. There is no pericardial effusion. There are no hilar masses. There is no mediastinal adenopathy. Thoracic aorta appears normal. There is normal contrast opacification of the pulmonary arteries. There are no filling defects. The bony thorax appears intact. Upper abdominal soft tissues are intact. IMPRESSION: Normal exam. No evidence of pulmonary embolism. There is clearing of the right lower and left upper l obe lobe pulmonary emboli compared to 05/13/2019 exam.
--- NOTE | 2019-06-24 01:50 | ED ---
General Adult HPI - General Chief complaint: Chest Pain Stated complaint: Chest Pain Time Seen by Provider: 06/24/19 00:07 Source: patient, RN notes reviewed Mode of arrival: ambulatory Limitations: no limitations - History of Present Illness Initial comments: 29-year-old male with a past medical history of DVT, PE 2 months ago presents to the emergency department for sharp pleuritic chest pain. Patient states he has had this pain since he was discharged from the hospital. However patient states it improved and worsening at about 2 weeks ago when he started working. States that with his history he wanted to be evaluated for this. He denies shortness of breath. He denies fevers or chills. He denies cough. Patient is taking eliquis. Patient has no other complaints at this time including shortness of breath, abdominal pain, nausea or vomiting, headache, or visual changes. - Related Data Previous Rx's Medication Instructions Recorded Apixaban [Eliquis Starter Pack 0 mg PO DIRECTED 30 Days #1 pack 05/14/19 (for VTE)] Acetaminophen Tab [Tylenol] 650 mg PO Q6HR PRN tab 05/15/19 Pantoprazole Sodium [Protonix] 40 mg PO DAILY #30 tablet. 05/15/19 Azithromycin [Zithromax Z-pack] 250 mg PO DIRECTED #6 tab 05/24/19 Allergies Allergy/AdvReac Type Severity Reaction Status Date / Time No Known Allergies Allergy Verified 06/23/19 23:40 Review of Systems ROS Statement: Those systems with pertinent positive or pertinent negative responses have been documented in the HPI. ROS Other: All systems not noted in ROS Statement are negative. Past Medical History Past Medical History: Deep Vein Thrombosis (DVT), GERD/Reflux, Pulmonary Embolus (PE) Additional Past Medical History / Comment(s): Blood clots,DISLOCATED RIGHT SHOULDER (CHILDHOOD INJURY). kidney stones, History of Any Multi-Drug Resistant Organisms: None Reported Past Surgical History: Orthopedic Surgery Additional Past Surgical History / Comment(s): RIGHT KNEE ARTHROSCOPY Past Anesthesia/Blood Transfusion Reactions: No Reported Reaction Past Psychological History: No Psychological Hx Reported Smoking Status: Current every day smoker Past Alcohol Use History: Occasional Past Drug Use History: Marijuana - Past Family History Father Family Medical History: Cancer, Liver Disease Additional Family Medical History / Comment(s): HEPATITIS C, CIRRHOSIS, LIVER C ANCER. General Exam Limitations: no limitations General appearance: alert, in no apparent distress Head exam: Present: atraumatic, normocephalic, normal inspection Eye exam: Present: normal appearance, PERRL, EOMI. Absent: scleral icterus, conjunctival injection, periorbital swelling ENT exam: Present: normal exam, mucous membranes moist Neck exam: Present: normal inspection. Absent: tenderness, meningismus, lymphadenopathy Respiratory exam: Present: normal lung sounds bilaterally. Absent: respiratory distress, wheezes, rales, rhonchi, stridor Cardiovascular Exam: Present: regular rate, normal rhythm, normal heart sounds. Absent: systolic murmur, diastolic murmur, rubs, gallop, clicks GI/Abdominal exam: Present: soft, normal bowel sounds. Absent: distended, tenderness, guarding, rebound, rigid Neurological exam: Present: alert Psychiatric exam: Present: normal affect, normal mood Course Vital Signs 06/23/19 23:36 Temperature 97.8 F Pulse Rate 73 Respiratory 16 Rate Blood Pressure 117/73 O2 Sat by Pulse 98 Oximetry EKG Findings - EKG Comments: EKG Findings:: Normal sinus rhythm, ventricular rate 75, Pr int 184, QTC 408 Medical Decision Making - Medical Decision Making Vital signs are unremarkable. Patient is not tachycardic. 98% on room air. CBC CMP unremarkable. Mild dehydration present, patient given fluids. Troponin is negative. CTA shows no evidence of pulmonary embolism. There is clearing of the right lower and left upper lobe pulmonary emboli. Pain is atypical in nature and has been present since discharge from hospital. He is still on Eliquis. His EKG shows a normal sinus rhythm, no ST elevation or depression. Patient will follow up with primary care in 1-2 days and return if he has any worsening symptoms. - Lab Data Result diagrams: 06/24/19 00:07 06/24/19 00:07 Lab Results 06/24/19 06/24/19 06/24/19 Range/Units 00:07 00:07 00:07 WBC 9.8 (3.8-10.6) k/uL RBC 4.58 (4.30-5.90) m/uL Hgb 15.5 (13.0-17.5) gm/dL Hct 43.9 (39.0-53.0) % MCV 95.7 (80.0-100.0) fL MCH 33.8 (25.0-35.0) pg MCHC 35.3 (31.0-37.0) g/dL RDW 13.3 (11.5-15.5) % Plt Count 182 (150-450) k/uL Neutrophils % 71 % Lymphocytes % 20 % Monocytes % 5 % Eosinophils % 3 % Basophils % 1 % Neutrophils # 7.0 (1.3-7.7) k/uL Lymphocytes # 2.0 (1.0-4.8) k/uL Monocytes # 0.5 (0-1.0) k/uL Eosinophils # 0.3 (0-0.7) k/uL Basophils # 0.1 (0-0.2) k/uL PT (9.0-12.0) sec INR (<1.2) APTT (22.0-30.0) sec Sodium 138 (137-145) mmol/L Potassium 4.1 (3.5-5.1) mmol/L Chloride 107 (98-107) mmol/L Carbon Dioxide 24 (22-30) mmol/L Anion Gap 7 mmol/L BUN 24 H (9-20) mg/dL Creatinine 1.28 H (0.66-1.25) mg/dL Est GFR (CKD-EPI)AfAm 86 (>60 ml/min/1.73 sqM) Est GFR (CKD-EPI)NonAf 74 (>60 ml/min/1.73 sqM) Glucose 89 (74-99) mg/dL Calcium 9.3 (8.4-10.2) mg/dL Magnesium 2.0 (1.6-2.3) mg/dL Total Bilirubin 0.7 (0.2-1.3) mg/dL AST 23 (17-59) U/L ALT 26 (4-49) U/L Alkaline Phosphatase 56 (38-126) U/L Troponin I (0.000-0.034) ng/mL NT-Pro-B Natriuret Pep 25 pg/mL Total Protein 6.8 (6.3-8.2) g/dL Albumin 4.3 (3.5-5.0) g/dL 06/24/19 06/24/19 Range/Units 00:07 00:07 WBC (3.8-10.6) k/uL RBC (4.30-5.90) m/uL Hgb (13.0-17.5) gm/dL Hct (39.0-53.0) % MCV (80.0-100.0) fL MCH (25.0-35.0) pg MCHC (31.0-37.0) g/dL RDW (11.5-15.5) % Plt Count (150-450) k/uL Neutrophils % % Lymphocytes % % Monocytes % % Eosinophils % % Basophils % % Neutrophils # (1.3-7.7) k/uL Lymphocytes # (1.0-4.8) k/uL Monocytes # (0-1.0) k/uL Eosinophils # (0-0.7) k/uL Basophils # (0-0.2) k/uL PT 10.4 (9.0-12.0) sec INR 1.0 (<1.2) APTT 27.4 (22.0-30.0) sec Sodium (137-145) mmol/L Potassium (3.5-5.1) mmol/L Chloride (98-107) mmol/L Carbon Dioxide (22-30) mmol/L Anion Gap mmol/L BUN (9-20) mg/dL Creatinine (0.66-1.25) mg/dL Est GFR (CKD-EPI)AfAm (>60 ml/min/1.73 sqM) Est GFR (CKD-EPI)NonAf (>60 ml/min/1.73 sqM) Glucose (74-99) mg/dL Calcium (8.4-10.2) mg/dL Magnesium (1.6-2.3) mg/dL Total Bilirubin (0.2-1.3) mg/dL AST (17-59) U/L ALT (4-49) U/L Alkaline Phosphatase (38-126) U/L Troponin I <0.012 (0.000-0.034) ng/mL NT-Pro-B Natriuret Pep pg/mL Total Protein (6.3-8.2) g/dL Albumin (3.5-5.0) g/dL Disposition Clinical Impression: Atypical chest pain Disposition: HOME SELF-CARE Condition: Good Instructions (If sedation given, give patient instructions): Chest Pain (ED) Additional Instructions: Please follow up with primary care in 1-2 days. Return to the emergency department if you have any worsening symptoms. Is patient prescribed a controlled substance at d/c from ED?: No Referrals: Kirk Vernon MD [Primary Care Provider] - 1-2 days Time of Disposition: 02:21
[2019-06-24 02:39] VITALS: BP 118/74; PULSE 76; RESP 15; TEMP 98.2
== END 2019-06-24 02:35 | disposition home or self-care (01) ==
LOC: EC 23:19
DX: R07.89 Other chest pain (principal); E86.0 Dehydration; I26.99 Other pulmonary embolism without acute cor pulmonale; F17.200 Nicotine dependence, unspecified, uncomplicated; Z79.01 Long term (current) use of anticoagulants; Z86.718 Personal history of other venous thrombosis and embolism
CPT/HCPCS: 36415; 93005; 83880; 80053; 83735; 84484; 85025; 85610; 85730; 71275; 99284; 96360; Q9967

== ENCOUNTER 2019-07-12 16:51 | Emergency (ER) | payer OTHER ==
[2019-07-12 17:15] VITALS: TEMP 98.6
[2019-07-12] MEDS ORDERED: SODIUM CHLORIDE 0.9% 500 ML 500 ML IV STA (17:38)
[2019-07-12 18:21] LABS: Basophils # (A) 0.1 k/uL (0-0.2); Basophils % (A) 1 %; Eosinophils # (A) 0.2 k/uL (0-0.7); Eosinophils % (A) 2 %; HCT 48.3 % (39.0-53.0); HGB 16.6 gm/dL (13.0-17.5); Lymphocytes # (A) 2.1 k/uL (1.0-4.8); Lymphocytes % (A) 17 %; MCH 32.6 pg (25.0-35.0); MCHC 34.3 g/dL (31.0-37.0); MCV 94.9 fL (80.0-100.0); Mean Platelet Volume 7.8; Monocytes # (A) 0.6 k/uL (0-1.0); Monocytes % (A) 5 %; Neutrophils # (A) 8.8 k/uL (1.3-7.7); Neutrophils % (A) 74 %; Platelet Count 181 k/uL (150-450); RBC 5.09 m/uL (4.30-5.90); RDW 12.9 % (11.5-15.5)
--- NOTE | 2019-07-12 18:21 | ED ---
General Adult HPI - General Chief complaint: Arrhythmia/Palpitations Stated complaint: Poss DVT, rapid heart rate Time Seen by Provider: 07/12/19 17:30 Source: patient, RN notes reviewed, old records reviewed Mode of arrival: ambulatory Limitations: no limitations - History of Present Illness Initial comments: 29-year-old male with history of DVT PE presenting for evaluation of palpitations. Patient states that with any exertion he develops significant palpitations and tachycardia. He reports some very brief intermittent right- sided chest pain earlier today. He has history of PE and is currently on Eliquis which she states he has been compliant with present no other medication. He had CT angiography earlier this month which was negative for pulmonary embolism and it showed resolution of previously visualized pulmonary embolism. He also states that he had some pain in his left calf today and was concerned that he had developed another DVT. Denies central chest pain. Denies fever or chills. Denies abdominal pain nausea vomiting. Denies fever. - Related Data Previous Rx's Medication Instructions Recorded Apixaban [Eliquis Starter Pack 0 mg PO DIRECTED 30 Days #1 pack 05/14/19 (for VTE)] Acetaminophen Tab [Tylenol] 650 mg PO Q6HR PRN tab 05/15/19 Pantoprazole Sodium [Protonix] 40 mg PO DAILY #30 tablet. 05/15/19 Azithromycin [Zithromax Z-pack] 250 mg PO DIRECTED #6 tab 05/24/19 Allergies Allergy/AdvReac Type Severity Reaction Status Date / Time No Known Allergies Allergy Verified 06/23/19 23:40 Review of Systems ROS Statement: Those systems with pertinent positive or pertinent negative responses have been documented in the HPI. ROS Other: All systems not noted in ROS Statement are negative. Past Medical History Past Medical History: Deep Vein Thrombosis (DVT), GERD/Reflux, Pulmonary Embolus (PE) Additional Past Medical History / Comment(s): Blood clots,DISLOCATED RIGHT SHOULDER (CHILDHOOD INJURY). kidney stones, History of Any Multi-Drug Resistant Organisms: None Reported Past Surgical History: Orthopedic Surgery Additional Past Surgical History / Comment(s): RIGHT KNEE ARTHROSCOPY Past Anesthesia/Blood Transfusion Reactions: No Reported Reaction Past Psychological History: No Psychological Hx Reported Smoking Status: Current every day smoker Past Alcohol Use History: Occasional Past Drug Use History: Marijuana - Past Family History Father Family Medical History: Cancer, Liver Disease Additional Family Medical History / Comment(s): HEPATITIS C, CIRRHOSIS, LIVER CANCER. General Exam Limitations: no limitations General appearance: alert, in no apparent distress Head exam: Present: atraumatic, normocephalic Eye exam: Present: normal appearance, PERRL ENT exam: Present: normal exam Neck exam: Present: normal inspection. Absent: tenderness, meningismus Respiratory exam: Present: normal lung sounds bilaterally. Absent: respiratory distress, wheezes, rales Cardiovascular Exam: Present: regular rate, normal rhythm GI/Abdominal exam: Present: soft. Absent: distended, tenderness, guarding Extremities exam: Present: normal inspection, normal capillary refill, calf tenderness (On the left). Absent: pedal edema Neurological exam: Present: alert, oriented X3, CN II-XII intact, normal gait. Absent: motor sensory deficit Psychiatric exam: Present: anxious Skin exam: Present: warm, dry, intact. Absent: cyanosis, diaphoretic Course Vital Signs 07/12/19 07/12/19 17:13 20:01 Temperature 98.6 F Pulse Rate 107 H 78 Respiratory 19 18 Rate Blood Pressure 140/82 131/85 O2 Sat by Pulse 98 98 Oximetry EKG Findings - EKG Comments: EKG Findings:: EKG: Normal sinus rhythm, rate of 97, VT interval 168, QRS durati on 92, QTC 436, no ST segment elevation, overall similar periods compared with previous EKGs. Medical Decision Making - Medical Decision Making 29-year-old male history of DVT and PE presented for evaluation of palpitations and left leg pain. Pain was minimal the left leg and transient. No complaints time my evaluation. Ultrasound is performed which shows similar appearance to thrombus found in April 2019. Chest x-ray negative for any acute cardiac pulmonary disease. Normal CBC, normal CMP. Hemoglobin stable at 16.6. Normal electrolytes, negative troponin. EKG showing sinus rhythm. Patient will take his Eliquis, as prescribed. Follow up with both his primary care physician and his scheduled appointment with hematology. - Lab Data Result diagrams: 07/12/19 18:10 07/12/19 18:10 Lab Results 07/12/19 07/12/19 07/12/19 Range/Units 18:10 18:10 18:10 WBC 12.0 H (3.8-10.6) k/uL RBC 5.09 (4.30-5.90) m/uL Hgb 16.6 (13.0-17.5) gm/dL Hct 48.3 (39.0-53.0) % MCV 94.9 (80.0-100.0) fL MCH 32.6 (25.0-35.0) pg MCHC 34.3 (31.0-37.0) g/dL RDW 12.9 (11.5-15.5) % Plt Count 181 (150-450) k/uL Neutrophils % 74 % Lymphocytes % 17 % Monocytes % 5 % Eosinophils % 2 % Basophils % 1 % Neutrophils # 8.8 H (1.3-7.7) k/uL Lymphocytes # 2.1 (1.0-4.8) k/uL Monocytes # 0.6 (0-1.0) k/uL Eosinophils # 0.2 (0-0.7) k/uL Basophils # 0.1 (0-0.2) k/uL PT 10.6 (9.0-12.0) sec INR 1.0 (<1.2) APTT 24.4 (22.0-30.0) sec Sodium 139 (137-145) mmol/L Potassium 3.7 (3.5-5.1) mmol/L Chloride 107 (98-107) mmol/L Carbon Dioxide 21 L (22-30) mmol/L Anion Gap 12 mmol/L BUN 12 (9-20) mg/dL Creatinine 1.12 (0.66-1.25) mg/dL Est GFR (CKD-EPI)AfAm >90 (>60 ml/min/1.73 sqM) Est GFR (CKD-EPI)NonAf 87 (>60 ml/min/1.73 sqM) Glucose 81 (74-99) mg/dL Calcium 9.5 (8.4-10.2) mg/dL Magnesium 1.9 (1.6-2.3) mg/dL Total Bilirubin 1.3 (0.2-1.3) mg/dL AST 29 (17-59) U/L ALT 30 (4-49) U/L Alkaline Phosphatase 73 (38-126) U/L Troponin I (0.000-0.034) ng/mL Total Protein 7.5 (6.3-8.2) g/dL Albumin 4.9 (3.5-5.0) g/dL 07/12/19 Range/Units 18:10 WBC (3.8-10.6) k/uL RBC (4.30-5.90) m/uL Hgb (13.0-17.5) gm/dL Hct (39.0-53.0) % MCV (80.0-100.0) fL MCH (25.0-35.0) pg MCHC (31.0-37.0) g/dL RDW (11.5-15.5) % Plt Count (150-450) k/uL Neutrophils % % Lymphocytes % % Monocytes % % Eosinophils % % Basophils % % Neutrophils # (1.3-7.7) k/uL Lymphocytes # (1.0-4.8) k/uL Monocytes # (0-1.0) k/uL Eosinophils # (0-0.7) k/uL Basophils # (0-0.2) k/uL PT (9.0-12.0) sec INR (<1.2) APTT (22.0-30.0) sec Sodium (137-145) mmol/L Potassium (3.5-5.1) mmol/L Chloride (98-107) mmol/L Carbon Dioxide (22-30) mmol/L Anion Gap mmol/L BUN (9-20) mg/dL Creatinine (0.66-1.25) mg/dL Est GFR (CKD-EPI)AfAm (>60 ml/min/1.73 sqM) Est GFR (CKD-EPI)NonAf (>60 ml/min/1.73 sqM) Glucose (74-99) mg/dL Calcium (8.4-10.2) mg/dL Magnesium (1.6-2.3) mg/dL Total Bilirubin (0.2-1.3) mg/dL AST (17-59) U/L ALT (4-49) U/L Alkaline Phosphatase (38-126) U/L Troponin I <0.012 (0.000-0.034) ng/mL Total Protein (6.3-8.2) g/dL Albumin (3.5-5.0) g/dL Disposition Clinical Impression: Left leg DVT, Palpitations Disposition: HOME SELF-CARE Condition: Good Instructions (If sedation given, give patient instructions): Heart Palpitations (ED), Deep Vein Thrombosis (ED) Is patient prescribed a controlled substance at d/c from ED?: No Referrals: Kirk Vernon MD [Primary Care Provider] - 1-2 days Time of Disposition: 20:29
[2019-07-12 18:30] LABS: Partial Thromboplastin Time 24.4 sec (22.0-30.0); Prothrombin Time 10.6 sec (9.0-12.0)
[2019-07-12 18:47] LABS: ALT 30 U/L (4-49); AST 29 U/L (17-59); African American GFR (CKD) >90 (>60 ml/min/1.73 sqM); Albumin 4.9 g/dL (3.5-5.0); Alkaline Phosphatase 73 U/L (38-126); Blood Urea Nitrogen 12 mg/dL (9-20); Calcium 9.5 mg/dL (8.4-10.2); Carbon Dioxide 21 mmol/L (22-30); Glucose 81 mg/dL (74-99); Magnesium 1.9 mg/dL (1.6-2.3); Non-African American GFR(CKD) 87 (>60 ml/min/1.73 sqM); Total Bilirubin 1.3 mg/dL (0.2-1.3); Total Protein 7.5 g/dL (6.3-8.2)
[2019-07-12 18:51] LABS: Sodium 139 mmol/L (137-145)
[2019-07-12 18:54] LABS: Anion Gap 12 mmol/L; Chloride 107 mmol/L (98-107); Potassium 3.7 mmol/L (3.5-5.1)
--- NOTE | 2019-07-12 19:22 | XR ---
EXAMINATION: XR chest 2V DATE AND TIME: 07/12/2019 6:29 PM CLINICAL INDICATION: PHH; dysrhythmia TECHNIQUE: Departmental protocol COMPARISON: 05/24/2019 FINDINGS: The lungs are clear. The pleural spaces are negative. The cardiac silhouette is not enlarged. The remainder of the mediastinal silhouette is unremarkable. The skeletal structures and soft tissues are negative for acute findings. IMPRESSION: NO ACUTE PROCESS.
--- NOTE | 2019-07-12 19:41 | US ---
EXAMINATION TYPE: US venous doppler duplex LE LT DATE OF EXAM: 07/12/2019 7:24 PM COMPARISON: Left lower extremity venous Doppler duplex ultrasound 05/13/2019 CLINICAL HISTORY: DVT. R/O DVT. Pain x 4.5 hours. Hx DVT and PE. Patient is on eliquis. SIDE PERFORMED: Left TECHNIQUE: The lower extremity deep venous system is examined utilizing real time linear array sonog ann with graded compression, doppler sonography and color-flow sonography. VESSELS IMAGED: External Iliac Vein (EIV) Common Femoral Vein Deep Femoral Vein Greater Saphenous Vein * Femoral Vein Popliteal Vein Small Saphenous Vein * Proximal Calf Veins (* superficial vessels) LEFT LOWER EXTREMITY FINDINGS:: There appears to be thrombus in the duplicate superficial femoral ve in and duplicate popliteal vein. These vessels do not fully compress. Overall similar appearance to t hat of the 05/13/2018 study. RIGHT LOWER EXTREMITY FINDINGS: No abnormalities. IMPRESSION: Left lower extremity thrombus, with similar appearance to the prior study.
[2019-07-12 20:04] VITALS: BP 131/85; PULSE 78; RESP 18
== END 2019-07-12 20:39 | disposition home or self-care (01) ==
LOC: EC 16:51
DX: I82.402 Acute embolism and thrombosis of unspecified deep veins of left lower extremity (principal); R00.2 Palpitations; R07.9 Chest pain, unspecified; F17.200 Nicotine dependence, unspecified, uncomplicated; Z79.01 Long term (current) use of anticoagulants; Z86.711 Personal history of pulmonary embolism
CPT/HCPCS: 36415; 71046; 80053; 83735; 84484; 85025; 85610; 85730; 93005; 96360; 96361; 99285

== ENCOUNTER 2019-12-31 12:56 | Emergency (ER) | payer OTHER ==
[2019-12-31 13:24] VITALS: TEMP 98.4
[2019-12-31] MEDS ORDERED: SODIUM CHLORIDE 0.9% 1,000 ML IV STA (13:58)
[2019-12-31] MEDS ORDERED: SODIUM CHLORIDE 0.9% 500 ML 500 ML IV STA (13:58)
--- NOTE | 2019-12-31 14:00 | ED ---
Chest Pain HPI - General Chief Complaint: Chest Pain Stated Complaint: Blood clot, pain on right side Time Seen by Provider: 12/31/19 13:33 Source: patient, RN notes reviewed, old records reviewed Mode of arrival: wheelchair Limitations: no limitations - History of Present Illness Initial Comments: This is a 29-year-old male DF for evaluation, reevaluation of known PE in known DVT, patient has been episodically and not completely take liquids as prescribed. Patient is about 8 months after diagnosis original. MD Complaint: chest pain, other (Leg pain some right-sided abdominal pain) -: days(s) Onset: during rest Pain Location: substernal Pain Radiation: abdomen (Quadrant) Severity: moderate Severity scale (1-10): 4 Quality: tightness, sharp Consistency: intermittent Improves With: nothing Worsens With: nothing Context: recent illness Anginal Symptoms: dyspnea Treatments Prior to Arrival: none - Related Data Home Medications Medication Instructions Recorded Confirmed Apixaban [Eliquis] 5 mg PO BID 12/31/19 12/31/19 Allergies Allergy/AdvReac Type Severity Reaction Status Date / Time No Known Allergies Allergy Verified 12/31/19 15:50 Review of Systems ROS Statement: Those systems with pertinent positive or pertinent negative responses have been documented in the HPI. ROS Other: All systems not noted in ROS Statement are negative. EKG Findings - EKG Comments: EKG Findings:: EKG shows sinus rhythm of 76 AK 170 QRS 92 QTC 416 Past Medical History Past Medical History: Deep Vein Thrombosis (DVT), GERD/Reflux, Pulmonary Embolus (PE) Additional Past Medical History / Comment(s): Blood clots,DISLOCATED RIGHT SHOULDER (CHILDHOOD INJURY). kidney stones, History of Any Multi-Drug Resistant Organisms: None Reported Past Surgical History: Orthopedic Surgery Additional Past Surgical History / Comment(s): RIGHT KNEE ARTHROSCOPY Past Anesthesia/Blood Transfusion Reactions: No Reported Reaction Past Psychological History: No Psychological Hx Reported Smoking Status: Current every day smoker Past Alcohol Use History: Occasional Past Drug Use History: Marijuana - Past Family History Father Family Medical History: Cancer, Liver Disease Additional Family Medical History / Comment(s): HEPATITIS C, CIRRHOSIS, LIVER CANCER. General Exam Limitations: no limitations General appearance: alert, in no apparent distress Head exam: Present: atraumatic, normocephalic, normal inspection Eye exam: Present: normal appearance, PERRL, EOMI. Absent: scleral icterus, conjunctival injection, periorbital swelling ENT exam: Present: normal exam, mucous membranes moist Neck exam: Present: normal inspection. Absent: tenderness, meningismus, lymphadenopathy Respiratory exam: Present: normal lung sounds bilaterally. Absent: respiratory distress, wheezes, rales, rhonchi, stridor Cardiovascular Exam: Present: regular rate, normal rhythm, normal heart sounds. Absent: systolic murmur, diastolic murmur, rubs, gallop, clicks GI/Abdominal exam: Present: soft, normal bowel sounds. Absent: distended, tende rness, guarding, rebound, rigid Extremities exam: Present: normal inspection, full ROM, normal capillary refill. Absent: tenderness, pedal edema, joint swelling, calf tenderness Back exam: Present: normal inspection Neurological exam: Present: alert, oriented X3, CN II-XII intact Psychiatric exam: Present: normal affect, normal mood Skin exam: Present: warm, dry, intact, normal color. Absent: rash Course Vital Signs 12/31/19 13:21 Temperature 98.4 F Pulse Rate 81 Respiratory 18 Rate Blood Pressure 119/74 O2 Sat by Pulse 99 Oximetry - Reevaluation(s) Reevaluation #1: 12/31/19 14:27 Medical records reviewed Reevaluation #2: 12/31/19 16:20 Patient's in no distress no complaints Chest Pain MDM - MDM 29 male DF for evaluation patient with us today for evaluation multiple nonspecific pain. Of the chest. The prior PE has resolved. Gallbladder looks good, ultrasound of left lower extremity only DVT patient will resume requesting can be discharged home Disposition Clinical Impression: Left leg DVT, Atypical chest pain Disposition: HOME SELF-CARE Condition: Good Instructions (If sedation given, give patient instructions): Costochondritis (ED), Deep Vein Thrombosis (ED), Paresthesia (ED) Is patient prescribed a controlled substance at d/c from ED?: No Referrals: Kirk Vernon MD [Primary Care Provider] - 1-2 days
[2019-12-31 14:35] LABS: Basophils % (A) 1 %; Eosinophils # (A) 0.3 k/uL (0-0.7); Eosinophils % (A) 4 %; HCT 50.8 % (39.0-53.0); HGB 17.1 gm/dL (13.0-17.5); Lymphocytes # (A) 1.5 k/uL (1.0-4.8); Lymphocytes % (A) 21 %; MCH 33.9 pg (25.0-35.0); MCHC 33.7 g/dL (31.0-37.0); MCV 100.4 fL (80.0-100.0); Mean Platelet Volume 7.8; Monocytes # (A) 0.5 k/uL (0-1.0); Monocytes % (A) 6 %; Neutrophils # (A) 4.7 k/uL (1.3-7.7); Neutrophils % (A) 65 %; Platelet Count 163 k/uL (150-450); RBC 5.06 m/uL (4.30-5.90); RDW 13.3 % (11.5-15.5); WBC 7.2 k/uL (3.8-10.6)
[2019-12-31 14:46] LABS: D-Dimer 0.34 mg/L FEU (<0.60); Partial Thromboplastin Time 24.8 sec (22.0-30.0); Prothrombin Time 10.3 sec (9.0-12.0)
[2019-12-31 14:59] LABS: ALT 38 U/L (4-49); AST 31 U/L (17-59); African American GFR (CKD) >90 (>60 ml/min/1.73 sqM); Albumin 4.3 g/dL (3.5-5.0); Alkaline Phosphatase 63 U/L (38-126); Anion Gap 5 mmol/L; Blood Urea Nitrogen 12 mg/dL (9-20); Calcium 9.2 mg/dL (8.4-10.2); Carbon Dioxide 23 mmol/L (22-30); Chloride 108 mmol/L (98-107); Creatine Kinase 93 U/L (55-170); Glucose 83 mg/dL (74-99); Magnesium 2.2 mg/dL (1.6-2.3); Non-African American GFR(CKD) >90 (>60 ml/min/1.73 sqM); Potassium 4.5 mmol/L (3.5-5.1); Sodium 136 mmol/L (137-145); Total Bilirubin 0.9 mg/dL (0.2-1.3); Total Protein 6.5 g/dL (6.3-8.2)
--- NOTE | 2019-12-31 15:03 | CT ---
EXAMINATION TYPE: CT abdomen pelvis w con DATE OF EXAM: 12/31/2019 , Gallbladder is normal reduction was used. TECHNIQUE: Helical acquisition of images from the lung bases through the pelvis have been completed. CONTRAST: Performed without Oral Contrast and with IV Contrast, patient injected with 100 mL of Isovue 370. FINDINGS: LUNG BASES: No significant abnormality is appreciated. AORTA: No significant abnormality is appreciated. LIVER/GB: Liver is at the upper limit of normal for size, low-attenuation. PANCREAS: No significant abnormality is seen. SPLEEN: No significant abnormality is seen. ADRENALS: No significant abnormality is seen. KIDNEYS: No significant abnormality is seen. REPRODUCTIVE ORGANS: No significant abnormality is seen BOWEL: No significant abnormality is seen. Appendix is normal. FREE AIR: No Free Air visible. ASCITES: None visible. PELVIC ADENOPATHY: None visualized. RETROPERITONEAL ADENOPATHY: No Retroperitoneal Adenopathy visible. URINARY BLADDER: No significant abnormality is seen. OSSEOUS STRUCTURES: No significant abnormality is seen. IMPRESSION: HEPATIC STEATOSIS.
--- NOTE | 2019-12-31 15:03 | CT ---
EXAMINATION TYPE: CT angio chest DATE OF EXAM: 06/24/2019 COMPARISON: None HISTORY: Right sided pain with shortness of breath,. CT DLP: 2430.3 mGycm CONTRAST: CT chest with contrast and 3D reconstruction with MIP imaging is performed with IV Contrast, patient injected with 100 mL of Isovue 370. Contrast-enhanced CT of the chest was performed through the course of the pulmonary arteries with vicki g and mediastinal window settings submitted. 3D reconstruction with MIP imaging was also performed. PULMONARY ARTERIES: The pulmonary arteries and their major tributaries are patent. I do not see jay dence for sizable filling defect to suggest pulmonary embolic process. LUNGS: The lungs are clear and free of infiltrate. No evidence for atelectasis. No pulmonary nodule or mass is detected. No pleural effusion. MEDIASTINUM: Thoracic aorta is of normal caliber,however, evaluation is limited given timing of the contrast bolus. If there is concern for thoracic aortic pathology consider YORDAN. Correlate clinicall y . The heart is not enlarged. No evidence for mediastinal mass. No mediastinal lymph nodes greater than 1cm. HILAR STRUCTURES: No evidence for mass. No hilar lymph nodes greater than 1 cm. UPPER ABDOMEN: No significant abnormality is seen. IMPRESSION: 1. No evidence for Pulmonary embolism at this time.
--- NOTE | 2019-12-31 15:36 | US ---
EXAMINATION TYPE: US venous doppler duplex LE LT DATE OF EXAM: 12/31/2019 3:21 PM COMPARISON: NONE CLINICAL HISTORY: pain. pain left leg, history of DVT and PE, patient is on blood thinner SIDE PERFORMED: left TECHNIQUE: The lower extremity deep venous system is examined utilizing real time linear array sonog ann with graded compression, doppler sonography and color-flow sonography. VESSELS IMAGED: External Iliac Vein (EIV) Common Femoral Vein Deep Femoral Vein Greater Saphenous Vein * Femoral Vein Popliteal Vein Small Saphenous Vein * Proximal Calf Veins (* superficial vessels) Left Leg: *positive for DVT, thready flow with incomplete compression left femoral vein and poplitea l vein IMPRESSION: Positive for DVT as noted above.
--- NOTE | 2019-12-31 15:48 | US ---
EXAMINATION TYPE: US gallbladder DATE OF EXAM: 12/31/2019 COMPARISON: CT same date CLINICAL HISTORY: pain. RUQ pain EXAM MEASUREMENTS: Liver Length: 15.8 cm Gallbladder Wall: 0.3 cm CBD: 0.4 cm Right Kidney: 11.1 x 4.1 x 4.3 cm Pancreas: Obscured by bowel gas Liver: attenuating Gallbladder: no evidence of stones Evidence for sonographic Goyal's sign: no CBD: appears wnl as visualized Right Kidney: no evidence of hydronephrosis IMPRESSION: Findings compatible with hepatic steatosis.
[2019-12-31 16:39] VITALS: BP 128/89; PULSE 83; RESP 19
== END 2019-12-31 16:38 | disposition home or self-care (01) ==
LOC: EC 12:56
DX: R07.89 Other chest pain (principal); I82.412 Acute embolism and thrombosis of left femoral vein; I82.432 Acute embolism and thrombosis of left popliteal vein; F17.200 Nicotine dependence, unspecified, uncomplicated; Z79.01 Long term (current) use of anticoagulants; Z86.711 Personal history of pulmonary embolism; Z86.718 Personal history of other venous thrombosis and embolism
CPT/HCPCS: 36415; 93005; 85379; 83880; 80053; 82550; 83690; 83735; 84484; 85025; 85610; 85730; 93971; 76705; 71275; 74177; 99285; Q9967

== ENCOUNTER 2020-12-31 14:41 | Emergency (ER) | payer OTHER ==
[2020-12-31 14:48] VITALS: TEMP 98.2
[2020-12-31] MEDS ORDERED: ASPIRIN 81 MG PO STA (15:35)
[2020-12-31] MEDS ORDERED: RX INFO: IV CONTRAST WAS GIVEN 1 EACH MISC MISCELLANE PRN (15:35)
[2020-12-31] MEDS ORDERED: KETOROLAC 15 MG/ML 1 ML VIAL IVP STA (15:36)
[2020-12-31 15:54] LABS: Basophils # (A) 0.1 k/uL (0-0.2); Basophils % (A) 1 %; Eosinophils # (A) 0.4 k/uL (0-0.7); Eosinophils % (A) 4 %; HCT 48.8 % (39.0-53.0); HGB 16.3 gm/dL (13.0-17.5); Lymphocytes # (A) 1.7 k/uL (1.0-4.8); Lymphocytes % (A) 15 %; MCH 32.9 pg (25.0-35.0); MCHC 33.5 g/dL (31.0-37.0); MCV 98.2 fL (80.0-100.0); Mean Platelet Volume 7.5; Monocytes # (A) 0.6 k/uL (0-1.0); Monocytes % (A) 5 %; Neutrophils # (A) 8.3 k/uL (1.3-7.7); Neutrophils % (A) 74 %; Platelet Count 208 k/uL (150-450); RBC 4.97 m/uL (4.30-5.90); RDW 13.2 % (11.5-15.5); WBC 11.3 k/uL (3.8-10.6)
--- NOTE | 2020-12-31 16:00 | XR ---
EXAMINATION TYPE: XR chest 1V portable DATE OF EXAM: 12/31/2020 COMPARISON: 07/12/2019 HISTORY: Chest pain TECHNIQUE: Single frontal view of the chest is obtained. FINDINGS: There is no focal air space opacity, pleural effusion, or pneumothorax seen. The cardiac silhouette size is within normal limits. The osseous structures are intact. IMPRESSION: 1. No acute process.
[2020-12-31 16:02] LABS: ALT 42 U/L (4-49); AST 33 U/L (17-59); African American GFR (CKD) >90 (>60 ml/min/1.73 sqM); Albumin 4.4 g/dL (3.5-5.0); Alkaline Phosphatase 59 U/L (38-126); Anion Gap 7 mmol/L; Blood Urea Nitrogen 15 mg/dL (9-20); Calcium 9.7 mg/dL (8.4-10.2); Carbon Dioxide 25 mmol/L (22-30); Chloride 109 mmol/L (98-107); Glucose 84 mg/dL (74-99); Non-African American GFR(CKD) 89 (>60 ml/min/1.73 sqM); Potassium 4.4 mmol/L (3.5-5.1); Sodium 141 mmol/L (137-145); Total Bilirubin 0.7 mg/dL (0.2-1.3); Total Protein 6.9 g/dL (6.3-8.2)
[2020-12-31 16:07] LABS: D-Dimer 0.33 mg/L FEU (<0.60); Partial Thromboplastin Time 22.9 sec (22.0-30.0); Prothrombin Time 10.4 sec (9.0-12.0)
--- NOTE | 2020-12-31 16:32 | CT ---
EXAMINATION TYPE: CT angio chest DATE OF EXAM: 12/31/2020 COMPARISON: 12/31/2019 HISTORY: No chest compliants at time of scan. History of DVT and PE CT DLP: 847.1 mGycm CONTRAST: CT chest with contrast and 3D reconstruction with MIP imaging is performed with IV Contrast, patient injected with 100 mL of Isovue 370. Contrast-enhanced CT of the chest was performed through the course of the pulmonary arteries with vicki g and mediastinal window settings submitted. 3D reconstruction with MIP imaging was also performed. PULMONARY ARTERIES: The pulmonary arteries and their major tributaries are patent. I do not see jay dence for sizable filling defect to suggest pulmonary embolic process. LUNGS: The lungs are clear and free of infiltrate. No evidence for atelectasis. No pulmonary nodule or mass is detected. No pleural effusion. MEDIASTINUM: Thoracic aorta is of normal caliber,however, evaluation is limited given timing of the contrast bolus. If there is concern for thoracic aortic pathology consider YORDAN. Correlate clinicall y . The heart is not enlarged. No evidence for mediastinal mass. No mediastinal lymph nodes greater than 1cm. HILAR STRUCTURES: No evidence for mass. No hilar lymph nodes greater than 1 cm. UPPER ABDOMEN: No significant abnormality is seen. IMPRESSION: 1. No evidence for Pulmonary embolism at this time.
--- NOTE | 2020-12-31 16:51 | ED ---
General Adult HPI - General Chief complaint: Chest Pain Stated complaint: chest pain Time Seen by Provider: 12/31/20 15:07 Source: patient Mode of arrival: ambulatory Limitations: no limitations - History of Present Illness Initial comments: Patient is a 30-year-old with past medical history of dvt, pulmonary embolism no longer on anticoagulation who presents to the emergency department complaining of intermittent chest pain with shortness of breath over the last month. His chest pain is over the left side of his chest and it is a sharp sensation that quickly disappears. He states he currently is not experiencing it. However today he became concerned, as he does have a history of pulmonary embolism and decided to come to the emergency department to be evaluated. He states he is not currently having chest pain or shortness of breath, but expresses short onset shortness of breath, chest pain is present. He denies any blurry vision or lightheadedness. He denies any lower extremity edema or pain. Denies any abdominal pain, nausea, vomiting. Patient otherwise has no other acute complaints at this time. He has a scheduled primary care appointment at the beginning of next month but was uncertain if he can make it that long. He state s he does have increased stress over the last few weeks, and states that this may be contributing to his chest discomfort that he intermittently experiences. States the chest pain does not radiate. It self resolves. There are no palliative or exacerbating factors that he knows of, including stretching or motion. It is not acute complaints at this time. - Related Data Home Medications Medication Instructions Recorded Confirmed Multivitamins, Thera [Multivitamin 2 tab PO BID 12/31/20 12/31/20 (formulary)] Allergies Allergy/AdvReac Type Severity Reaction Status Date / Time No Known Allergies Allergy Verified 12/31/20 15:56 Review of Systems ROS Statement: Those systems with pertinent positive or pertinent negative responses have been documented in the HPI. Review of Systems: CONST: Denies fever EYES: Denies blurry vision ENT: Denies nasal congestion C/V: Endorses chest pain RESP: Denies shortness of breath GI: Denies abdominal pain : Denies dysuria SKIN: Denies rash. MSK: Denies joint pain. NEURO: Denies headache ROS Other: All systems not noted in ROS Statement are negative. Past Medical History Past Medical History: Deep Vein Thrombosis (DVT), GERD/Reflux, Pulmonary Embolus (PE) Additional Past Medical History / Comment(s): Blood clots,DISLOCATED RIGHT SHOULDER (CHILDHOOD INJURY). kidney stones, History of Any Multi-Drug Resistant Organisms: None Reported Past Surgical History: Orthopedic Surgery Additional Past Surgical History / Comment(s): RIGHT KNEE ARTHROSCOPY Past Anesthesia/Blood Transfusion Reactions: No Reported Reaction Past Psychological History: No Psychological Hx Reported Smoking Status: Current every day smoker Past Alcohol Use History: Occasional Past Drug Use History: Marijuana - Past Family History Father Family Medical History: Cancer, Liver Disease Additional Family Medical History / Comment(s): HEPATITIS C, CIRRHOSIS, LIVER CANCER. General Exam - General Exam Comments Initial Comments: General: Appears in no acute distress. HEAD: Normal with no signs of head trauma. EYES: PERRLA, EOMI, conjunctiva normal, no discharge. ENT: Hearing grossly intact, normal oropharynx. RESPIRATORY: Clear breath sounds bilaterally. No wheezes, rales, or rhonchi. C/V: Patient is mildly tachycardic in triage with a regular rhythm, S1 and S2 auscultated, no peripheral edema, peripheral pulses are 2+ intact throughout. On Evaluation in the room, patient's pulse is now in the 80s. ABD: Abd is soft, nontender, nondistended EXT: Normal range of motion, no obvious deformity SKIN: No rashes or lesions observed on exposed skin. NEURO: Alert and oriented x 4. No focal sensory or strength deficits. Limitations: no limitations Course Vital Signs 12/31/20 12/31/20 12/31/20 14:45 16:09 17:03 Temperature 98.2 F Pulse Rate 120 H 92 101 H Respiratory 20 16 18 Rate Blood Pressure 135/79 155/85 O2 Sat by Pulse 97 99 Oximetry Medical Decision Making - Medical Decision Making Based on the patient's history, presentation, and physical exam, I'm concerned for possible cardiac etiology for his current symptoms as well as pulmonary embolism. Patient is high risk for PE, as he does have a history of DVT as well as prior PE, and is tachycardic with subjective shortness of breath. I believe this justifies a CT PE at this time. He also received a cardiac workup including troponins, basic labs, EKG, chest x-ray. He'll be connected to continuous cardiac monitoring. Patient will be administered IV Toradol as well as aspirin for pain management. He was in agreement with this plan. Patient's EKG shows no acute ischemia. Chest x-ray reveals no acute cardiopulmonary process. CT PE did not reveal any signs of pulmonary embolism. Laboratory studies are remarkable for a negative troponin. D-dimer is normal. On reevaluation, patient remains stable and has had not had any episodes of c hest pain in the emergency department. He states he is not short of breath. Repeat vital signs show that his tachycardia has resolved. I do believe it is safe for him to be discharged home at this time with close follow-up with his PCP. He was in agreement with this plan. Patient was therefore discharged home in improved condition. I instructed the patient to follow up with their PCP in the next 3 days. I explained that the patient should return to the emergency department if they experience any worsening symptoms. Strict return precautions were discussed with the patient. The patient expressed understanding of these instructions. I answered all questions that the patient had. The patient was discharged home in improved condition with their prescriptions and follow up information. - Lab Data Result diagrams: 12/31/20 15:38 12/31/20 15:38 Lab Results 12/31/20 12/31/20 12/31/20 Range/Units 15:38 15:38 15:38 WBC 11.3 H (3.8-10.6) k/uL RBC 4.97 (4.30-5.90) m/uL Hgb 16.3 (13.0-17.5) gm/dL Hct 48.8 (39.0-53.0) % MCV 98.2 (80.0-100.0) fL MCH 32.9 (25.0-35.0) pg MCHC 33.5 (31.0-37.0) g/dL RDW 13.2 (11.5-15.5) % Plt Count 208 (150-450) k/uL MPV 7.5 Neutrophils % 74 % Lymphocytes % 15 % Monocytes % 5 % Eosinophils % 4 % Basophils % 1 % Neutrophils # 8.3 H (1.3-7.7) k/uL Lymphocytes # 1.7 (1.0-4.8) k/uL Monocytes # 0.6 (0-1.0) k/uL Eosinophils # 0.4 (0-0.7) k/uL Basophils # 0.1 (0-0.2) k/uL PT 10.4 (9.0-12.0) sec INR 1.0 (<1.2) APTT 22.9 (22.0-30.0) sec D-Dimer 0.33 (<0.60) mg/L FEU Sodium 141 (137-145) mmol/L Potassium 4.4 (3.5-5.1) mmol/L Chloride 109 H (98-107) mmol/L Carbon Dioxide 25 (22-30) mmol/L Anion Gap 7 mmol/L BUN 15 (9-20) mg/dL Creatinine 1.09 (0.66-1.25) mg/dL Est GFR (CKD-EPI)AfAm >90 (>60 ml/min/1.73 sqM) Est GFR (CKD-EPI)NonAf 89 (>60 ml/min/1.73 sqM) Glucose 84 (74-99) mg/dL Calcium 9.7 (8.4-10.2) mg/dL Magnesium 2.0 (1.6-2.3) mg/dL Total Bilirubin 0.7 (0.2-1.3) mg/dL AST 33 (17-59) U/L ALT 42 (4-49) U/L Alkaline Phosphatase 59 (38-126) U/L Troponin I (0.000-0.034) ng/mL Total Protein 6.9 (6.3-8.2) g/dL Albumin 4.4 (3.5-5.0) g/dL 12/31/20 Range/Units 15:38 WBC (3.8-10.6) k/uL RBC (4.30-5.90) m/uL Hgb (13.0-17.5) gm/dL Hct (39.0-53.0) % MCV (80.0-100.0) fL MCH (25.0-35.0) pg MCHC (31.0-37.0) g/dL RDW (11.5-15.5) % Plt Count (150-450) k/uL MPV Neutrophils % % Lymphocytes % % Monocytes % % Eosinophils % % Basophils % % Neutrophils # (1.3-7.7) k/uL Lymphocytes # (1.0-4.8) k/uL Monocytes # (0-1.0) k/uL Eosinophils # (0-0.7) k/uL Basophils # (0-0.2) k/uL PT (9.0-12.0) sec INR (<1.2) APTT (22.0-30.0) sec D-Dimer (<0.60) mg/L FEU Sodium (137-145) mmol/L Potassium (3.5-5.1) mmol/L Chloride (98-107) mmol/L Carbon Dioxide (22-30) mmol/L Anion Gap mmol/L BUN (9-20) mg/dL Creatinine (0.66-1.25) mg/dL Est GFR (CKD-EPI)AfAm (>60 ml/min/1.73 sqM) Est GFR (CKD-EPI)NonAf (>60 ml/min/1.73 sqM) Glucose (74-99) mg/dL Calcium (8.4-10.2) mg/dL Magnesium (1.6-2.3) mg/dL Total Bilirubin (0.2-1.3) mg/dL AST (17-59) U/L ALT (4-49) U/L Alkaline Phosphatase (38-126) U/L Troponin I <0.012 (0.000-0.034) ng/mL Total Protein (6.3-8.2) g/dL Albumin (3.5-5.0) g/dL - EKG Data -: EKG Interpreted by Me EKG Comments: 12-lead Electrocardiogram Interpretation Note EKG was reviewed and interpreted by myself. 12-lead ECG performed at 1453 is interpreted by me as revealing normal sinus rhythm at a rate of 102 beats per minute. Wagoner is normal. ND interval is 168 ms, QRS duration is 92 ms, QTc is 419 ms.. There were no ST or T wave abnormalities to suggest myocardial ischemia or injury. R wave progression across the precordium was satisfactory. By my interpretation this EKG is non-diagnostic for acute ischemia. Disposition Clinical Impression: Chest pain, unspecified, History of pulmonary embolism Disposition: HOME SELF-CARE Condition: Good Instructions (If sedation given, give patient instructions): Chest Pain (ED), Costochondritis (ED) Is patient prescribed a controlled substance at d/c from ED?: No Referrals: Kirk Vernon MD [Primary Care Provider] - 1-2 days
[2020-12-31 17:04] VITALS: BP 155/85; PULSE 101; RESP 18
== END 2020-12-31 17:04 | disposition home or self-care (01) ==
LOC: EC 14:41
DX: R07.89 Other chest pain (principal); F17.200 Nicotine dependence, unspecified, uncomplicated; Z86.711 Personal history of pulmonary embolism
CPT/HCPCS: 36415; 93005; 85379; 80053; 83735; 84484; 85025; 85610; 85730; 71045; 71275; 99285; 96374; J1885; Q9967

== ENCOUNTER 2021-11-21 05:26 | Emergency (ER) | payer OTHER ==
[2021-11-21] MEDS ORDERED: KETOROLAC 15 MG/ML 1 ML VIAL IM STA (06:29)
--- NOTE | 2021-11-21 06:34 | ED ---
Extremity Problem HPI - General Chief complaint: Extremity Problem,Nontraumatic Stated complaint: thigh pain Time Seen by Provider: 11/21/21 06:03 Source: patient, RN notes reviewed Mode of arrival: ambulatory Limitations: no limitations - History of Present Illness Initial comments: This is a 31-year-old male who presents to the emergency department with left calf pain. Patient states that for the last 2-3 days he has had throbbing in the leg that is keeping him awake at night. He has a history of a DVT back in 2019 that has subsequently led to a pulmonary embolism. His symptoms of leg pain were similar at that time, however they had been present for about a month before he was evaluated. He was on Eliquis for a year, but is not currently ta sherlyn any blood thinners. Denies any chest pain or shortness of breath. When he had the pulmonary embolism he did have significant chest pain and shortness of breath. He does note that over the last few weeks he has been exercising frequently, especially doing squats and calf raises. Denies any fevers, chills, sore throat, cough, dyspnea, chest pain, palpitations, abdominal pain, nausea, vomiting, diarrhea, back pain, or headaches. MD Complaint: extremity pain Onset/Timin -: days(s) Location: left, lower extremity History of Same: Yes Radiation: proximal Quality: aching - Related Data Home Medications Medication Instructions Recorded Confirmed Multivitamins, Thera [Multivitamin 2 tab PO BID 12/31/20 12/31/20 (formulary)] Previous Rx's Medication Instructions Recorded Diclofenac Sodium Gel [Voltaren 4 gm TOPICAL QID #100 gm 11/21/21 Gel] Allergies Allergy/AdvReac Type Severity Reaction Status Date / Time No Known Allergies Allergy Verified 11/21/21 05:35 Review of Systems ROS Statement: Those systems with pertinent positive or pertinent negative responses have been documented in the HPI. ROS Other: All systems not noted in ROS Statement are negative. Past Medical History Past Medical History: Deep Vein Thrombosis (DVT), GERD/Reflux, Pulmonary Embolus (PE) Additional Past Medical History / Comment(s): Blood clots,DISLOCATED RIGHT SHOULDER (CHILDHOOD INJURY). kidney stones, History of Any Multi-Drug Resistant Organisms: None Reported Past Surgical History: Orthopedic Surgery Additional Past Surgical History / Comment(s): RIGHT KNEE ARTHROSCOPY Past Anesthesia/Blood Transfusion Reactions: No Reported Reaction Past Psychological History: No Psychological Hx Reported Smoking Status: Current every day smoker Past Alcohol Use History: Occasional Past Drug Use History: Marijuana - Past Family History Father Family Medical History: Cancer, Liver Disease Additional Family Medical History / Comment(s): HEPATITIS C, CIRRHOSIS, LIVER CANCER. General Exam Limitations: no limitations General appearance: alert, in no apparent distress Head exam: Present: atraumatic, normocephalic, normal inspection Respiratory exam: Present: normal lung sounds bilaterally. Absent: respiratory distress, wheezes, rales, rhonchi, stridor Cardiovascular Exam: Present: regular rate, normal rhythm, normal heart sounds. Absent: systolic murmur, diastolic murmur, rubs, gallop, clicks Extremities exam: Present: calf tenderness (Mid posterior left calf. No swelling or erythema.) Neurological exam: Present: alert, oriented X3, CN II-XII intact Psychiatric exam: Present: normal affect, normal mood Skin exam: Present: warm, dry, intact, normal color. Absent: rash Course Vital Signs 11/21/21 05:32 Temperature 97.7 F Pulse Rate 104 H Respiratory 20 Rate Blood Pressure 131/88 O2 Sat by Pulse 99 Oximetry Medical Decision Making - Medical Decision Making This is a 31-year-old male who presents to the emergency department for left calf pain. Given the patient's history of a DVT and similar symptoms, duplex ultrasound was obtained. This revealed no evidence of a DVT. This is most likely related to a calf strain, as the patient notes that he has been exercising and doing calf raises recently. Advised that this is likely a calf strain. This may also be due to a vitamin deficiency, as the patient has recently changed his diet. I did advise he take [id number] anti- inflammatories, however he declined stating that he does not like to take pills out of concern for his kidney function. I suggested Voltaren gel, and sent a prescription to the pharmacy. I also advised him to take a multivitamin, in case there is a vitamin deficiency contributing to this due to recent dietary changes. Heat application was also advised. We also discussed Theraworx, a new spray-on treatment for calf cramping. Return precautions reviewed in depth, the patient is instructed to return to the emergency department with any new, worsening, or concerning symptoms, especially increased pain, swelling, redness, chest pain, or shortness of breath. Patient verbalized understanding. This case was discussed in detail with the attending ED physician. Presentation, findings, and treatment plan discussed in detail as well. - Radiology Data Radiology results: report reviewed, image reviewed Disposition Clinical Impression: Strain of left calf muscle Disposition: HOME SELF-CARE Instructions (If sedation given, give patient instructions): Muscle Strain (ED), Leg Cramps (ED) Additional Instructions: Return to the emergency department with any new, worsening, or concerning symptoms. Especially if you develop increased pain, swelling, or redness to the extremity. Begin taking a multivitamin multivitamin in the event there are any mineral deficiencies contributing to this. Ensure that you are remaining well- hydrated. Prescription for Diclofenac gel provided, you can purchase this [id number] or at the pharmacy, whatever is cheaper or preferred. Consider purchasing Theraworx Relief for any muscle cramps. Follow up with your primary care provider in 1-2 days. Prescriptions: Diclofenac Sodium Gel [Voltaren Gel] 4 gm TOPICAL QID #100 gm Is patient prescribed a controlled substance at d/c from ED?: No Referrals: Kirk Vernon MD [Primary Care Provider] - 1-2 days
--- NOTE | 2021-11-21 07:36 | US ---
EXAMINATION TYPE: US venous doppler duplex LE LT DATE OF EXAM: 11/21/2021 7:29 AM COMPARISON: NONE CLINICAL HISTORY: calf pain/throbbing, hx of a DVT. Pain and swelling in left thigh x 3 days. SIDE PERFORMED: Left leg TECHNIQUE: The lower extremity deep venous system is examined utilizing real time linear array sonog ann with graded compression, doppler sonography and color-flow sonography. VESSELS IMAGED: Common Femoral Vein Deep Femoral Vein Greater Saphenous Vein * Femoral Vein Popliteal Vein Small Saphenous Vein * Proximal Calf Veins (* superficial vessels) Grayscale, color doppler, spectral doppler imaging performed of the deep veins of the lower extremiti es. There is normal flow, compressibility, vascular waveforms. Left Leg: Negative for DVT IMPRESSION: No deep vein thrombosis of the left lower extremity.
[2021-11-21 08:37] VITALS: BP 126/81; PULSE 79; RESP 16; TEMP 97.9
== END 2021-11-21 08:35 | disposition home or self-care (01) ==
LOC: EC 05:26
DX: S86.112A Strain of other muscle(s) and tendon(s) of posterior muscle group at lower leg level, left leg, initial encounter (principal); F17.200 Nicotine dependence, unspecified, uncomplicated; X58.XXXA Exposure to other specified factors, initial encounter
CPT/HCPCS: 93971; 99283; 96372; J1885

== ENCOUNTER 2022-04-19 13:09 | Emergency (ER) | payer OTHER ==
[2022-04-19 13:33] VITALS: TEMP 98.2
[2022-04-19] MEDS ORDERED: IBUPROFEN 600 MG TAB PO STA (15:39)
[2022-04-19] MEDS ORDERED: ACETAMINOPHEN TAB 325 MG TAB PO STA (15:39)
--- NOTE | 2022-04-19 15:43 | ED ---
Back Pain HPI - General Chief Complaint: Back Pain/Injury Stated Complaint: Back Pain Time Seen by Provider: 04/19/22 15:30 Source: patient, RN notes reviewed, old records reviewed Limitations: no limitations - History of Present Illness Initial Comments: Well-appearing 32-year-old male presents to the emergency room with complaints of left upper back pain denies any injuries. States that has started off as a dull ache and sometimes has tingling sensation around the area. Denies any cough or chest pain. No difficulty breathing. Denies any fevers. States has history of kidney stones, DVT and PE in 2019. Does not take any blood thinners on a daily basis. Has seen a chiropractor in the past told him he has a buldging disc in his low back and neck. MD Complaint: back pain -: month(s) (06/21) Radiation: none Severity scale (1-10): 5 Quality: dull, tingling Consistency: constant Improves With: none Worsens With: none Associated Symptoms: denies other symptoms - Related Data Home Medications Medication Instructions Recorded Confirmed Multivitamins, Thera [Multivitamin 2 tab PO BID 12/31/20 12/31/20 (formulary)] Previous Rx's Medication Instructions Recorded Diclofenac Sodium Gel [Voltaren 4 gm TOPICAL QID #100 gm 11/21/21 Gel] Ketorolac [Toradol] 10 mg PO Q8HR #15 tab 04/19/22 Lidocaine 5% Patch [Lidoderm] 1 patch TOPICAL DAILY PRN #14 patch 04/19/22 Allergies Allergy/AdvReac Type Severity Reaction Status Date / Time No Known Allergies Allergy Verified 04/19/22 13:33 Review of Systems ROS Statement: Those systems with pertinent positive or pertinent negative responses have been documented in the HPI. ROS Other: All systems not noted in ROS Statement are negative. Past Medical History Past Medical History: Deep Vein Thrombosis (DVT), GERD/Reflux, Pulmonary Embolus (PE) Additional Past Medical History / Comment(s): Blood clots,DISLOCATED RIGHT SHOULDER (CHILDHOOD INJURY). kidney stones, History of Any Multi-Drug Resistant Organisms: None Reported Past Surgical History: Orthopedic Surgery Additional Past Surgical History / Comment(s): RIGHT KNEE ARTHROSCOPY Past Anesthesia/Blood Transfusion Reactions: No Reported Reaction Past Psychological History: No Psychological Hx Reported Smoking Status: Current every day smoker Past Alcohol Use History: Occasional Past Drug Use History: Marijuana - Past Family History Father Family Medical History: Cancer, Liver Disease Additional Family Medical History / Comment(s): HEPATITIS C, CIRRHOSIS, LIVER CANCER. General Exam Limitations: no limitations General appearance: alert, in no apparent distress Head exam: Present: atraumatic Eye exam: Absent: scleral icterus, conjunctival injection, periorbital swelling Neck exam: Absent: tenderness, meningismus Respiratory exam: Present: normal lung sounds bilaterally. Absent: respiratory distress, wheezes, rales, rhonchi, stridor, chest wall tenderness, accessory muscle use, decreased breath sounds Cardiovascular Exam: Present: regular rate, normal rhythm GI/Abdominal exam: Present: soft Extremities exam: Present: normal capillary refill. Absent: pedal edema, calf tenderness Back exam: Present: full ROM, paraspinal tenderness (thoracic). Absent: tenderness, CVA tenderness (R), CVA tenderness (L), rash noted Neurological exam: Present: alert, oriented X3, normal gait Psychiatric exam: Present: normal affect, normal mood Skin exam: Present: warm, dry, normal color. Absent: cyanosis, diaphoretic, petechiae, pallor Course Vital Signs 04/19/22 04/19/22 13:31 17:06 Temperature 98.2 F 98.2 F Pulse Rate 85 88 Respiratory 20 17 Rate Blood Pressure 138/89 132/79 O2 Sat by Pulse 99 99 Oximetry Medical Decision Making - Medical Decision Making X-ray of the thoracic spine shows no acute osseous abnormality. Minimal upper t horacic scoliosis convex could be related to positioning versus muscle spasm. He denies any chest pain or cough. Oxygen saturation 99% on room air. Denies any trauma. There is no evidence of rash. There is no bruising or swelling. Patient has had this pain for over a month and a half. This is likely musculoskeletal pain. Patient was given Decadron and lidoderm patch for pain. Initially refused Tylenol and Motrin but did take prior to discharge. He was prescribed Lidoderm patches and Toradol for pain. Directed to follow-up with his primary care doctor this week and increase his fluid intake. Case discussed with Dr. lara Disposition Clinical Impression: Back pain Disposition: HOME SELF-CARE Condition: Good Instructions (If sedation given, give patient instructions): Back Pain (ED) Additional Instructions: Take Toradol as prescribed and use Lidoderm patches for pain relief. Do not take Toradol with Motrin or ibuprofen products together. Follow-up with the primary care doctor next week. Return to the emergency room with any new or c oncerning symptoms including chest pain or difficulty breathing. Prescriptions: Lidocaine 5% Patch [Lidoderm] 1 patch TOPICAL DAILY PRN #14 patch PRN Reason: Pain Ketorolac [Toradol] 10 mg PO Q8HR #15 tab Is patient prescribed a controlled substance at d/c from ED?: No Referrals: Kirk Vernon MD [Primary Care Provider] - 1-2 days Time of Disposition: 16:47
[2022-04-19] MEDS ORDERED: LIDOCAINE 5% PATCH TOPICAL SCH (15:45)
[2022-04-19] MEDS ORDERED: DEXAMETHASONE SOD PHOSPHATE 10 MG/ML 1 ML VIAL IM STA (15:46)
--- NOTE | 2022-04-19 16:21 | XR ---
EXAMINATION TYPE: XR thoracic spine complete DATE OF EXAM: 04/19/2022 COMPARISON: None HISTORY: Pain TECHNIQUE: 3 views thoracic spine FINDINGS: There are 12 thoracic type vertebral bodies. Pedicles are intact. Disc heights are preserve d. Vertebral body heights are preserved. Alignment appears normal. There is some subtle scoliosis wit hin the mid thoracic spine. This could be related to patient positioning or muscle spasm. IMPRESSION: 1. No acute osseous abnormality thoracic spine. 2. Minimal upper thoracic scoliosis convex related to patient positioning or muscle spasm.
[2022-04-19 17:08] VITALS: BP 132/79; PULSE 88; RESP 17
== END 2022-04-19 17:08 | disposition home or self-care (01) ==
LOC: EC 13:09
DX: M54.50 Low back pain, unspecified (principal); F17.210 Nicotine dependence, cigarettes, uncomplicated; K21.9 Gastro-esophageal reflux disease without esophagitis; Z86.711 Personal history of pulmonary embolism; Z86.718 Personal history of other venous thrombosis and embolism
CPT/HCPCS: 72072; 99283; 96372; J1100

== ENCOUNTER 2022-10-02 11:25 | Emergency (ER) | payer OTHER ==
[2022-10-02] MEDS ORDERED: SODIUM CHLORIDE 0.9% 500 ML 500 ML IV STA (12:11)
[2022-10-02] MEDS ORDERED: methylPREDNISolone SOD SUCCI 125 MG/2 ML VIAL IV STA (12:11)
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
[2022-10-02] MEDS ORDERED: ALBUTEROL HFA INHALER INHALATION STA (12:16)
--- NOTE | 2022-10-02 12:42 | XR ---
EXAMINATION TYPE: XR chest 2V DATE OF EXAM: 10/02/2022 12:38 PM COMPARISON: Chest radiographs from 12/31/2020 TECHNIQUE: XR chest 2V Frontal and lateral views of the chest. CLINICAL INDICATION:Male, 32 years old with history of difficulty breathing; FINDINGS: Lungs/Pleura: There is no evidence of pleural effusion, focal consolidation, or pneumothorax. Pulmonary vascularity: Unremarkable. Heart/mediastinum: Cardiomediastinal silhouette is unremarkable. Musculoskeletal: No acute osseous pathology. IMPRESSION: No acute cardiopulmonary disease/process.
[2022-10-02 12:49] LABS: Basophils # (A) 0.1 k/uL (0-0.2); Basophils % (A) 0 %; Eosinophils # (A) 0.4 k/uL (0-0.7); Eosinophils % (A) 2 %; HCT 49.8 % (39.0-53.0); HGB 17.1 gm/dL (13.0-17.5); Lymphocytes # (A) 1.3 k/uL (1.0-4.8); Lymphocytes % (A) 7 %; MCH 32.9 pg (25.0-35.0); MCHC 34.4 g/dL (31.0-37.0); MCV 95.6 fL (80.0-100.0); Mean Platelet Volume 7.9; Monocytes # (A) 0.5 k/uL (0-1.0); Monocytes % (A) 3 %; Neutrophils # (A) 15.5 k/uL (1.3-7.7); Neutrophils % (A) 87 %; Platelet Count 209 k/uL (150-450); RDW 13.1 % (11.5-15.5); WBC 17.8 k/uL (3.8-10.6)
[2022-10-02 12:53] LABS: ALT 70 U/L (4-49); AST 39 U/L (17-59); African American GFR (CKD) >90 (>60 ml/min/1.73 sqM); Albumin 4.4 g/dL (3.5-5.0); Alkaline Phosphatase 62 U/L (38-126); Anion Gap 9 mmol/L; Blood Urea Nitrogen 15 mg/dL (9-20); Calcium 9.1 mg/dL (8.4-10.2); Carbon Dioxide 25 mmol/L (22-30); Chloride 107 mmol/L (98-107); Glucose 96 mg/dL (74-99); Magnesium 2.1 mg/dL (1.6-2.3); Non-African American GFR(CKD) 85 (>60 ml/min/1.73 sqM); Potassium 4.1 mmol/L (3.5-5.1); Sodium 141 mmol/L (137-145); Total Bilirubin 0.7 mg/dL (0.2-1.3); Total Protein 6.9 g/dL (6.3-8.2)
[2022-10-02 13:06] LABS: Prothrombin Time 10.2 sec (9.0-12.0)
[2022-10-02 13:26] LABS: Partial Thromboplastin Time 20.4 sec (22.0-30.0)
--- NOTE | 2022-10-02 15:02 | CT ---
EXAMINATION TYPE: CT angio chest CT DLP: 1001.8 mGycm, Automated exposure control for dose reduction was used. DATE OF EXAM: 10/02/2022 2:49 PM COMPARISON: Chest x-ray 10/02/2022, CTA chest 07/24/2022 CLINICAL INDICATION:Male, 32 years old with history of elevated dimer, SOB; chest pain, sob and eleva aleksandr D-dimer. TECHNIQUE/CONTRAST: CTA scan of the thorax is performed with IV Contrast, patient injected with 85 mL of Isovue 370, pulm onary embolism protocol. MIP images are created and reviewed. FINDINGS: Pulmonary Artery: There is no evidence for a filling defect within the pulmonary vasculature to sugge st acute pulmonary embolism. The pulmonary artery is of normal size. Lungs/Pleura: Multifocal groundglass opacities are seen throughout the lungs (series 406, image 89 an d 76). Opacities are most pronounced within the upper lobes bilaterally. 7 mm right upper lobe pulmon abilio nodule (series 406, image 53). No pleural effusion or pneumothorax. Airway: Large airways are patent. Heart: Heart is within normal limits for size.. Vasculature: No evidence of aortic aneurysm. Mediastinum: No gross evidence of adenopathy. Musculoskeletal: No acute osseous abnormalities Soft Tissues: Unremarkable. Lower neck: No significant findings. Upper Abdomen: Hepatic steatosis. Patulous distal esophagus.. IMPRESSION: 1. No evidence of pulmonary embolism. 2. Multifocal groundglass pulmonary opacities concerning for acute infectious or inflammatory etiolog y. 3. Right upper lobe groundglass nodule which may be inflammatory given findings in #2. Need for furth er follow-up should be determined clinically. 4. Hepatic steatosis.
[2022-10-02 16:09] VITALS: PULSE 103; RESP 19
--- NOTE | 2022-10-02 16:14 | US ---
EXAMINATION TYPE: US venous doppler duplex LE BI DATE OF EXAM: 10/02/2022 3:46 PM COMPARISON: US CLINICAL INDICATION: Male, 32 years old with history of pain; SOB, prev DVT left leg SIDE PERFORMED: Bilateral TECHNIQUE: The lower extremity deep venous system is examined utilizing real time linear array sonog ann with graded compression, doppler sonography and color-flow sonography. VESSELS IMAGED: Common Femoral Vein Deep Femoral Vein Greater Saphenous Vein * Femoral Vein Popliteal Vein Small Saphenous Vein * Proximal Calf Veins (* superficial vessels) Right Leg: Negative for DVT Left Leg: Negative for DVT IMPRESSION: No evidence for deep vein thrombosis of the right or left lower extremity.
[2022-10-02 16:35] VITALS: BP 120/77; TEMP 97.9
== END 2022-10-02 16:35 | disposition home or self-care (01) ==
LOC: EC 11:25
DX: J06.9 Acute upper respiratory infection, unspecified (principal); Z86.718 Personal history of other venous thrombosis and embolism; F17.200 Nicotine dependence, unspecified, uncomplicated; F12.90 Cannabis use, unspecified, uncomplicated; Z20.822 Contact with and (suspected) exposure to COVID-19
CPT/HCPCS: 36415; 94640; 85379; 80053; 83605; 83735; 84484; 85025; 85610; 85730; 87636; 71046; 93970; 71275; 99285; 96374; 96361; J2930; Q9967

== ENCOUNTER → 2023-05-20 | Outpatient (CLI) | payer OTHER ==
--- NOTE | 2023-05-22 15:30 | XR ---
EXAMINATION TYPE: XR sinus DATE OF EXAM: 05/20/2023 COMPARISON: None HISTORY: Sinus issues chronic congestion TECHNIQUE: 4 view paranasal sinus study FINDINGS: There is a retention cyst within the inferior left maxillary sinus. Remaining paranasal sin uses are clear. Sella is unremarkable. Septum appears midline. IMPRESSION: 1. Retention cyst inferior left maxillary sinus
== END | disposition home or self-care (01) ==
LOC: RADXRMAIN 15:46
PROVIDERS: ATTEND Family Medicine
DX: J34.1 Cyst and mucocele of nose and nasal sinus (principal); R09.89 Other specified symptoms and signs involving the circulatory and respiratory systems
CPT/HCPCS: 70220

== ENCOUNTER → 2023-12-02 | Outpatient (CLI) | payer OTHER ==
--- NOTE | 2023-12-05 17:30 | CT ---
EXAMINATION TYPE: CT abdomen pelvis wo con CT DLP: 1657.3 mGycm, Automated exposure control for dose reduction was used. DATE OF EXAM: 12/02/2023 3:55 PM COMPARISON: CTA chest 10/02/2022, abdominal ultrasound 07/27/2022, CT abdomen and pelvis 12/31/2019. CLINICAL INDICATION:Male, 33 years old with history of R10.9 ABDOMINAL PAIN R82.998 OTHER ABNORMAL FI NDING; right side flank pain, dark colored urine. TECHNIQUE: Standard CT of the abdomen and pelvis without IV or oral contrast. Lack of IV or oral co ntrast limits evaluation of solid and hollow organ viscera. Coronal and sagittal reformats were perfo rmed. FINDINGS: LOWER CHEST: Unremarkable ABDOMEN LIVER: Diffusely hypoattenuating parenchyma. GALLBLADDER AND BILE DUCTS: Unremarkable. PANCREAS: Unremarkable. SPLEEN: Unremarkable. ADRENAL GLANDS: Unremarkable. KIDNEYS AND URETERS: No evidence of hydronephrosis or renal calculus. The ureters are unremarkable. PELVIS BLADDER: Unremarkable REPRODUCTIVE: Unremarkable. ABDOMEN & PELVIS STOMACH AND BOWEL: Stomach and duodenum are unremarkable. No focal bowel wall thickening or surroundi ng inflammatory changes. No evidence of bowel obstruction. The appendix is within normal limits. PERITONEUM: No evidence of pneumoperitoneum or free fluid. VASCULATURE: No evidence of aortic aneurysm. MUSCULOSKELETAL: No acute osseous abnormalities. Transitional L6 vertebral body. LYMPH NODES: No gross evidence for lymphadenopathy. SOFT TISSUE/ABDOMINAL WALL: Unremarkable IMPRESSION: 1. No evidence of acute process on this noncontrast CT. No evidence for obstructive uropathy. 2. Hepatic steatosis.
== END | disposition home or self-care (01) ==
LOC: RADCTMAIN 15:31
PROVIDERS: ATTEND Family Medicine
DX: K76.0 Fatty (change of) liver, not elsewhere classified (principal); R82.998 Other abnormal findings in urine
CPT/HCPCS: 74176

== ENCOUNTER → 2024-10-26 | Outpatient (CLI) | payer OTHER ==
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
== END | disposition home or self-care (01) ==
LOC: RADCTMAIN 09:15
PROVIDERS: ATTEND Family Medicine
DX: S09.93XA Unspecified injury of face, initial encounter (principal)
CPT/HCPCS: 70486

== ENCOUNTER → 2024-11-23 | Outpatient (CLI) | payer OTHER ==
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
== END | disposition home or self-care (01) ==
LOC: RADCTMAIN 15:48
PROVIDERS: ATTEND Family Medicine
DX: S76.302A Unspecified injury of muscle, fascia and tendon of the posterior muscle group at thigh level, left thigh, initial encounter (principal)